=== PATIENT | male | born 1965 | race Caucasian/White ===

== ENCOUNTER 2017-08-26 14:45 | Emergency (ER) | payer SELFPAY ==
[2017-08-26] VITALS (7 sets, daily range): BP systolic 114–147; BP diastolic 69–80; PULSE 72–89; RESP 15–18; TEMP 36.4; O2SAT 97–100; BMI 50.6
--- NOTE | 2017-08-26 15:09 | EKG12_ITS ---
Test Reason : REPEAT Blood Pressure : / mmHG Vent. Rate : 070 BPM Atrial Rate : 070 BPM P-R Int : 186 ms QRS Dur : 122 ms QT Int : 416 ms P-R-T Axes : 046 -05 033 degrees QTc Int : 449 ms Normal sinus rhythm Right bundle branch block Abnormal ECG Confirmed by EUGENE CHIO, TEMO ([id number]), avid editor NICHOLAS JIMENEZ ([id number]) on 08/28/2017 2:48:27 PM Referred By: SAMREEN Confirmed By:TEMO KNIGHT MD
--- NOTE | 2017-08-26 15:10 | ED.VISSUMM ---
- ER Visit Summary Date of Service: 08/26/17 Chief Complaint: Chest pain History of Present Illness: The patient is a 52 M who states that last evening while getting ready for bed at approximately 2300 hrs. he developed a pressure squeezing sensation that lasted 30 minutes just to the right of his mid sternum radiating to his back. He was slightly short of breath. He had no nausea vomiting or diaphoresis. It resolved on its own. Today around 1300 hrs. he was at work. He had a gradual onset of the same sensation and it acutely got worse. He noted that while using the bathroom he was lightheaded. He has a history of gout and obesity. His father had a stent placed at age 77. He is a lifetime non-smoker. His only medication includes allopurinol. He has never had this before. He has had no prior stress test or heart catheterization. He states his notes that he is a very heavy snorer. No known history of sleep apnea or pulmonary hypertension. Physical Examination: 147/69 heart rate of 93 respirations are 17 pulse ox 100% on room air Gen: Well-nourished well-developed is Head: Normocephalic atraumatic Eyes: Perrl EOMI ENT: TMs clear no rhinorrhea moist mucous membranes Neck: Supple no lymphadenopathy no JVD nontender CVS: Regular rate rhythm no murmurs normal S1-S2 Respiratory: No distress clear to auscultation bilaterally when pressing on his chest he states that it makes the heaviness and squeezing sensation worse Abdomen: Soft nontender nondistended normal bowel sounds no masses Back: Nontender Extremity: Nontender no edema Skin: Normal color no rash Neuro: alert orientated ?3 CN II-XII intact normal strength sensation reflexes gait cerebellar Psych: Normal affect normal mood Test Results: EKG demonstrates a normal sinus rhythm at a rate of 99 with a right bundle branch block. I have no old EKGs to compare to. Emergency Department Course and Treatment: Mr. Esqueda received aspirin and nitroglycerin. States he is doing better other than a slight headache. He does not wish anything for that. D-dimer not elevated. Troponin less than 0.02. The troponin and repeat EKG were obtained. Troponin less than 0.02 on delta. MARIBEL score 1. Heart score 3 The patient will be discharged home. He will follow-up with his primary care for stress testing. Return if worsening. Impression: 1. Chest pain This note was generated with [employer] / [employer]ader dictation software. It may contain incorrect words, spelling, and punctuation that were not noted in review of the chart prior to signing ED Disposition - Plan for ED Patient: Disposition: Home or Assisted Living Chief Complaint: Chest Pain Instructions: ED Chest Pain Atypical Unkn Cause Referrals: [facility] Doctor,Out of [Primary Care Provider] - Additional Instructions: Please call your doctor in the morning to arrange early follow-up to discuss stress testing. Return if worsening or any concerns.
[2017-08-26] MEDS: 0.9% Normal Saline 1,000 ML 150 ML IV (15:19)
[2017-08-26] MEDS: Aspirin 81 MG TAB.CHEW 324 MG PO (15:20)
--- NOTE | 2017-08-26 15:25 | RAD_ITS ---
STUDY: X-RAY CHEST REASON FOR EXAM: Male, 52 years old. Chest pain and shortness of breath. Dyspnea. TECHNIQUE: Single AP portable view of the chest. COMPARISON: None. FINDINGS: EKG electrodes are seen. Mild elevation of the right hemidiaphragm. There is no demonstrated pleural abnormality. Normal size heart. Normal mediastinum and greg. Normal visualized pulmonary arteries. There is atherosclerotic tortuosity of the aortic arch and descending thoracic aorta. Normal visualized thoracic spine. Normal visualized ribs, clavicles, and shoulders. There is no demonstrated abnormality of the visualized soft tissue structures of the upper abdomen. RAD/Chest 1 View (Portable) IMPRESSION: No acute abnormality is seen. Electronically Signed: Skinny Kamara MD at 15:37 EDT Tel [phone], Service support ,
[2017-08-26 15:26] LABS: Absolute Lymphocyte Count 2.95 X10^3/ul (0.83-4.51); Absolute Neutrophil Count 4.4 X10^3/uL (2.0-7.7); Basophil# 0.02 X10^3/uL; Basophil% 0.2 % (0-1); Eosinophil# 0.14 X10^3/uL; Eosinophils% 1.7 % (0-5); Hemoglobin 14.2 g/dl (13.0-16.5); Lymphocyte # 2.95 X10^3/ul (4.0); Lymphocyte % 36.7 % (19-41); Mean Corp Hgb Conc 32.3 g/gl (32-36); Mean Corpuscular Hgb 31.1 pg (27.0-32.0); Mean Corpuscular Volume 96.5 fL (80-94); Mean Platelet Vol. 10.1 fl (6.2-12.0); Monocyte# 0.53 X10^3/uL; Monocyte% 6.6 % (0-10); Neutrophil # 4.38 X10^3/uL (2.7-7.7); Neutrophil % 54.6 % (47-70); Platelet Count 263 K/mm3 (150-450); RBC Distribution Width CV 13.2 % (11.6-14.6); RBC Distribution Width SD 46.3 fl (35.1-43.9); Red Blood Count 4.56 M/mm3 (4.6-6.2)
[2017-08-26 15:36] LABS: Anion Gap 6 (5-15); BUN 15 mg/dL (7-18); BUN/Creat Ratio 15.9 RATIO (10-20); Calcium,Total 8.9 mg/dL (8.5-10.1); Chloride 103 mmol/L (98-107); Creatinine, Serum 0.94 mg/dL (0.70-1.30); EST Glomerular Filtration Rate 88 mL/min (>60); Est Glom Filt Rate - Afr Amer 107 mL/min (>60); Estimated Creatinine Clearance 89.84 ml/min; Glucose 123 mg/dL (74-106); Potassium 3.5 mmol/L (3.5-5.1); Sodium Level 140 mmol/L (136-145)
[2017-08-26 15:46] LABS: D-Dimer Quantitative (DVT/PE) 0.35 FEU/ug/m (0.27-0.49); POSITIVE COUNT NO; POSITIVE DIFFERENTIAL NO; POSITIVE MORPHOLOGY NO
--- NOTE | 2017-08-26 15:58 | EKG12_ITS ---
Test Reason : CP Blood Pressure : / mmHG Vent. Rate : 091 BPM Atrial Rate : 091 BPM P-R Int : 184 ms QRS Dur : 124 ms QT Int : 380 ms P-R-T Axes : 044 -05 047 degrees QTc Int : 467 ms Normal sinus rhythm Right bundle branch block Abnormal ECG Confirmed by EUGENE CHOI, TEMO ([id number]), editorial specialist NICHOLAS JIMENEZ ([id number]) on 08/28/2017 2:48:39 PM Referred By: JAYLEN Confirmed By:TEMO KNIGHT MD
== END 2017-08-26 18:00 | disposition home or self-care (01) ==
PROVIDERS: Emergency Provider Emergency Medicine; Family Provider Family Medicine
DX: R07.9 Chest pain, unspecified (principal); E66.9 Obesity, unspecified; M10.9 Gout, unspecified; Z82.49 Family history of ischemic heart disease and other diseases of the circulatory system
CPT/HCPCS: 71045; 80048; 84484; 85025; 85379; 93005; 99285

== ENCOUNTER 2018-04-14 10:19 | Emergency (ER) | payer SELFPAY ==
[2018-04-14 10:20] VITALS: BP 158/83; PULSE 98; RESP 18; TEMP 37; O2SAT 95; BMI 47.9
--- NOTE | 2018-04-14 10:37 | RAD_ITS ---
STUDY: X-RAY - RIGHT KNEE REASON FOR EXAM: Male, 52 years old. Pain following a fall. TECHNIQUE: 3 view(s) of the knee. COMPARISON: None. FINDINGS: Normal visualized distal femur. Normal visualized proximal tibia and fibula. Normal proximal tibiofibular articulation. There is moderate degenerative arthrosis of the medial femorotibial compartment with moderate joint space narrowing. Normal lateral femorotibial compartment. Normal patellofemoral articulation. Degenerative spurring is seen along the anterior superior aspect of the patella. Prepatellar soft tissue swelling. RAD/Knee 3 Views IMPRESSION: Degenerative arthrosis. Prepatellar soft tissue swelling. Electronically Signed: Skinny Kamara MD at 11:35 EST Tel [phone], Service support ,
--- NOTE | 2018-04-14 10:37 | RAD_ITS ---
STUDY: X-RAY - RIGHT TIBIA AND FIBULA REASON FOR EXAM: Male, 52 years old. Pain following a recent fall. TECHNIQUE: 2 view(s) and 4 images of the tibia and fibula were obtained. COMPARISON: None. FINDINGS: Normal visualized tibia. Normal visualized fibula. A spur is seen at the insertion of the Achilles tendon. Soft tissue swelling. RAD/Tibia & Fibula 2 Views IMPRESSION: Soft tissue swelling. Electronically Signed: Skinny Kamara MD at 11:34 EST Tel [phone], Service support ,
--- NOTE | 2018-04-14 10:41 | ED.VISSUMM ---
- ER Visit Summary Date of Service: 04/14/18 Chief Complaint: Right leg pain History of Present Illness: The patient is a 52 M past medical history of gout. Patient states he was blowing leaves at his home on Thursday stepped on a metal basement door slipped and fell landing awkwardly on both legs. Said his right leg was twisted underneath him. Since that time he has had pain primarily in the knee but the entire leg and it increases with weightbearing. He denies any significant prior injury or surgery to his right lower extremity. Denies hitting his head or any head, neck or back injury from the fall. He denies any numbness to his right foot. Physical Examination: Middle-aged male. Vital signs are stable afebrile. H EENT exam atraumatic. Pupils round reactive light. Neck nontender. Normal range of motion. Trachea midline. Lungs clear to auscultation bilaterally. Chest wall nontender. Heart regular rate and rhythm no murmur. Abdomen soft nontender. Normal bowel sounds. Pelvic girdle intact. Both upper extremities are nontender with normal range of motion noted equal and symmetrical fitter hand strength. Left lower extremity has diffuse mild soft tissue tenderness but no bony deformity. He has normal range of motion of his left hip, knee, ankle and foot. Left foot is neurovascular intact with dorsi and plantar flexion. Normal touch sensation. Right lower extremity he has pain on palpation basically from the thigh all the way down to his ankle. Primarily in the right knee. There is mild swelling in the right knee. He has decreased range of motion of the right knee due to pain. I cannot thoroughly evaluate his knee ligaments due to pain. His right foot is neurovascular intact. Dorsi and plantar flexion intact. Achilles tendon intact. Normal DP pulse. He is able to wiggle his toes. Normal touch sensation. The right foot is nontender. Back nontender. Neurologically is awake and alert with no focal motor deficits. Test Results: Right femur x-ray no acute abnormality. Right knee x-ray shows arthritic changes and a knee effusion. No fracture. Right tib-fib x-ray no acute abnormality. All films were read both by myself and the radiologist. Emergency Department Course and Treatment: I went over the x-rays with the patient and family. He will be diagnosed with a knee sprain. Ice and elevate. Anti-inflammatories for pain. [place] for pain. If not improving follow-up either with his primary care physician at [facility] or c python developer today for orthopedics for further evaluation to rule out an internal derangement of his knee. Treatment Plan: Ice and elevate. Motrin for pain and inflammation. [place] for pain. Follow-up if not improving for further evaluation. Disposition: Discharge Impression: Acute fall Acute right knee sprain. Rule out internal derangement This note was generated with [employer] dictation software. It may contain incorrect words, spelling, and punctuation that were not noted in review of the chart prior to signing ED Disposition - Plan for ED Patient: Chief Complaint: Lower Extremity Injury Referrals: [facility] Doctor,Out of [Primary Care Provider] -
--- NOTE | 2018-04-14 10:46 | ED.DCSUM_ITS ---
- ER Visit Summary Date of Service: 04/14/18 Chief Complaint: Right leg pain History of Present Illness: The patient is a 52 M past medical history of gout. Patient states he was blowing leaves at his home on Thursday stepped on a metal basement door slipped and fell landing awkwardly on both legs. Said his right leg was twisted underneath him. Since that time he has had pain primarily in the knee but the entire leg and it increases with weightbearing. He denies any significant prior injury or surgery to his right lower extremity. Denies hitting his head or any head, neck or back injury from the fall. He denies any numbness to his right foot. Physical Examination: Middle-aged male. Vital signs are stable afebrile. H EENT exam atraumatic. Pupils round reactive light. Neck nontender. Normal range of motion. Trachea midline. Lungs clear to auscultation bilaterally. Chest wall nontender. Heart regular rate and rhythm no murmur. Abdomen soft nontender. Normal bowel sounds. Pelvic girdle intact. Both upper extremities are nontender with normal range of motion noted equal and symmetrical general office associate strength. Left lower extremity has diffuse mild soft tissue tenderness but no bony deformity. He has normal range of motion of his left hip, knee, ankle and foot. Left foot is neurovascular intact with dorsi and plantar flexion. Normal touch sensation. Right lower extremity he has pain on palpation basically from the thigh all the way down to his ankle. Primarily in the right knee. There is mild swelling in the right knee. He has decreased range of motion of the right knee due to pain. I cannot thoroughly evaluate his knee ligaments due to pain. His right foot is neurovascular intact. Dorsi and plantar flexion intact. Achilles tendon intact. Normal DP pulse. He is able to wiggle his toes. Normal touch sensation. The right foot is nontender. Back nontender. Neurologically is awake and alert with no focal motor deficits. Test Results: Right femur x-ray no acute abnormality. Right knee x-ray shows arthritic changes and a knee effusion. No fracture. Right tib-fib x-ray no acute abnormality. All films were read both by myself and the radiologist. Emergency Department Course and Treatment: I went over the x-rays with the patient and family. He will be diagnosed with a knee sprain. Ice and elevate. Anti-inflammatories for pain. [place] for pain. If not improving follow-up either with his primary care physician at [facility] or bilingual medical receptionist today for orthopedics for further evaluation to rule out an internal derangement of his knee. Treatment Plan: Ice and elevate. Motrin for pain and inflammation. [place] for pain. Follow-up if not improving for further evaluation. Disposition: Discharge Impression: Acute fall Acute right knee sprain. Rule out internal derangement This note was generated with [employer] dictation software. It may contain incorrect words, spelling, and punctuation that were not noted in review of the chart prior to signing ED Disposition - Plan for ED Patient: Chief Complaint: Lower Extremity Injury Referrals: [facility] Doctor,Out of [Primary Care Provider] -
--- NOTE | 2018-04-14 11:05 | RAD_ITS ---
STUDY: X-RAY - RIGHT FEMUR REASON FOR STUDY: Male, 52 years old. Pain following a recent fall. TECHNIQUE: Radiological exam, femur, minimum 2 views COMPARISON: None. FINDINGS: Normal visualized femur. Normal visualized soft tissue structure. RAD/Femur Min 2 Views IMPRESSION: Normal x-ray examination of the femur. Electronically Signed: Skinny Kamara MD at 11:35 EST Tel [phone], Service support ,
--- NOTE | 2018-04-14 12:06 | DCINST.ED_ITS ---
ED Disposition - Plan for ED Patient: Disposition: Home or Assisted Living Chief Complaint: Lower Extremity Injury Instructions: ED Sprain Knee Prescriptions: Hydrocodone/Acetaminophen [[place] 10-325 Tablet] 1 ea PO Q6H PRN PRN #20 tab PRN Reason: Pain Referrals: Esther Calhoun DO [STAFF PHYSICIAN] - 10-14 Days if not better Additional Instructions: Ice and elevate right knee. To decrease pain and swelling. Motrin for pain and inflammation. [place] for more severe pain. If not improving follow-up with an orthopedic surgeon for further evaluation.
[2018-04-14 12:22] VITALS: BP 138/74; PULSE 72; RESP 15; O2SAT 97
== END 2018-04-14 12:23 | disposition home or self-care (01) ==
PROVIDERS: Emergency Provider Emergency Medicine; Family Provider Family Medicine
DX: S83.91XA Sprain of unspecified site of right knee, initial encounter (principal); W18.09XA Striking against other object with subsequent fall, initial encounter; Y93.H9 Activity, other involving exterior property and land maintenance, building and construction; Y92.007 Garden or yard of unspecified non-institutional (private) residence as the place of occurrence of the external cause; M10.9 Gout, unspecified
CPT/HCPCS: 73552; 73562; 73590; 99282

== ENCOUNTER 2018-04-26 19:48 | Inpatient (IN) | payer SELFPAY ==
[2018-04-26 19:50] VITALS: BP 157/93; PULSE 92; RESP 20; TEMP 36.7; O2SAT 98; BMI 49.4
--- NOTE | 2018-04-26 20:20 | US_ITS ---
STUDY: VENOUS DOPPLER ULTRASOUND - LEFT LOWER EXTREMITY REASON FOR EXAM: Male, 52 years old. TECHNIQUE: Ultrasound evaluation of the deep vein system to include martell-scale imaging and compression was performed. Martell-scale imaging and Doppler sonographic evaluation, including duplex spectral analysis and qualitative color flow sonography, was performed. COMPARISON: None. FINDINGS: Common Femoral Vein: Normal compression, spontaneity and augmentation. Normal color Doppler. Femoral Proximal: Normal compression, spontaneity and augmentation. Normal color Doppler. Femoral Middle: Normal compression, spontaneity and augmentation. Normal color Doppler. Femoral Distal: Normal compression, spontaneity and augmentation. Normal color Doppler. Popliteal Vein: Normal compression, spontaneity and augmentation. Normal color Doppler. Posterior Tibial Vein: Normal compression, spontaneity and augmentation. Normal color Doppler. There is a 3.5 x 4.5 x 2.3 cm cystic lesion in the popliteal fossa. Low-grade internal echoes may represent hemorrhage, less likely infection. US/Venous Duplex Imag/Limited/Uni IMPRESSION: 1. No evidence of DVT. 2. Complex popliteal cyst. Electronically Signed: Maria Victoria Ramirez MD at 21:18 EST Tel , Service support ,
--- NOTE | 2018-04-26 20:25 | RAD_ITS ---
STUDY: X-RAY - LEFT KNEE REASON FOR EXAM: Male, 52 years old. Fall, knee pain. TECHNIQUE: 4 view(s) of the knee. COMPARISON: None. FINDINGS: There is a small knee joint effusion. There is no fracture or dislocation. Mild patellofemoral spurring is noted. Medial and lateral compartments are unremarkable. Soft tissues and bony structures are otherwise unremarkable. RAD/Knee 4 or More Views IMPRESSION: 1. Small joint effusion. 2. Mild degenerative changes. Otherwise unremarkable study. Electronically Signed: Maria Victoria Ramirez MD at 20:50 EST Tel , Service support ,
[2018-04-26 20:45] LABS: ALB/GLOB Ratio 0.6 RATIO (0.9-2.4); AST(SGOT) 17 U/L (15-37); Alanine Aminotransfer ALT/SGPT 29 U/L (16-61); Albumin, Serum 3.2 g/dL (3.2-5.0); Alkaline Phosphatase 89 U/L (45-117); Anion Gap 8 (5-15); BUN 17 mg/dL (7-18); BUN/Creat Ratio 20.1 RATIO (10-20); Chloride 99 mmol/L (98-107); Creatinine, Serum 0.84 mg/dL (0.70-1.30); EST Glomerular Filtration Rate 100 mL/min (>60); Est Glom Filt Rate - Afr Amer 121 mL/min (>60); Estimated Creatinine Clearance 100.53 ml/min; Globulin 5.3 g/dL (2.2-4.2); Glucose 96 mg/dL (74-106); Potassium 3.6 mmol/L (3.5-5.1); Protein, Total 8.5 g/dL (6.4-8.2); Sodium Level 137 mmol/L (136-145); Uric Acid 4.4 mg/dL (3.5-7.2)
[2018-04-26 20:49] LABS: Absolute Lymphocyte Count 2.64 X10^3/ul (0.83-4.51); Absolute Neutrophil Count 7.2 X10^3/uL (2.0-7.7); Basophil# 0.03 X10^3/uL; Basophil% 0.3 % (0-1); Eosinophil# 0.16 X10^3/uL; Eosinophils% 1.4 % (0-5); Hematocrit 39.4 % (40-54); Hemoglobin 12.8 g/dl (13.0-16.5); Lymphocyte # 2.64 X10^3/ul (4.0); Lymphocyte % 23.9 % (19-41); Mean Corp Hgb Conc 32.5 g/gl (32-36); Mean Corpuscular Hgb 31.3 pg (27.0-32.0); Mean Corpuscular Volume 96.3 fL (80-94); Mean Platelet Vol. 9.1 fl (6.2-12.0); Monocyte# 0.94 X10^3/uL; Monocyte% 8.5 % (0-10); Neutrophil # 7.22 X10^3/uL (2.7-7.7); Neutrophil % 65.4 % (47-70); Platelet Count 382 K/mm3 (150-450); RBC Distribution Width CV 13.3 % (11.6-14.6); Red Blood Count 4.09 M/mm3 (4.6-6.2)
[2018-04-26 21:21] LABS: POSITIVE COUNT NO; POSITIVE DIFFERENTIAL NO; POSITIVE MORPHOLOGY NO
[2018-04-26 21:52] VITALS: BP 136/88; PULSE 78; RESP 16; O2SAT 98
[2018-04-26 22:10] VITALS: PULSE 89; RESP 18; TEMP 37.6; O2SAT 98
[2018-04-26 22:38] VITALS: BP 159/76; PULSE 87; RESP 18; O2SAT 97
--- NOTE | 2018-04-26 22:41 | ED.DCSUM_ITS ---
- ER Visit Summary Date of Service: 04/26/18 Chief Complaint: Leg swelling and foot redness History of Present Illness: The patient is a 52 M who was seen in the emergency department on May 14 2 days following a fall. On the fall he states he had pain in the right knee and had that x-rayed. That was negative. He states that is been very difficult for him to move around due to pain. His left knee has gradually gotten worse. He states he feels a fullness and a pain in his popliteal fossa region extending down onto the calf. He notes left greater than right leg swelling. He notes redness over the dorsum of both feet but is worse on the left. He states he has had subjective fever and shaking today. He has not been very mobile pretty much laying around since the injury. He does have a history of gout and his states that he had not been receiving his colchicine or allopurinol since he has been taking pain medication. Physical Examination: Afebrile vital signs are stable Gen: Well-nourished well-developed morbid obesity Head: Normocephalic atraumatic Eyes: Perrl EOMI ENT: TMs clear no rhinorrhea moist mucous membranes Neck: Supple no lymphadenopathy no JVD nontender CVS: Regular rate rhythm no murmurs normal S1-S2 Respiratory: No distress clear to auscultation bilaterally chest nontender Abdomen: Soft nontender nondistended normal bowel sounds no masses Back: Nontender Extremity: The left leg 2 finger breaths below the tibial tuberosity measures 50 cm. The right measures 40 cm. There is pitting edema up to the level of the knee. The left foot demonstrates increased warmth and erythema that does not resolve with elevation. The dorsum of the right foot is minimally red with mild erythema. Skin: Normal color see extremity exam Neuro: alert orientated ?3 CN II-XII intact normal strength sensation reflexes gait cerebellar Psych: Normal affect normal mood Test Results: White count is normal. X-ray of the knees showed mild degenerative changes. Ultrasound of the left leg demonstrates a complex cyst possible hemorrhagic Martinez's cyst. Emergency Department Course and Treatment: While reviewing the patient's labs and imaging the patient was noted to be shaking like rigors. His temperature is 99.6. The erythema on the dorsum of the left foot has increased. Blood cultures were obtained and lactic acid were ordered. Impression: 1. Bilateral foot cellulitis. 2. Left complex popliteal cyst This note was generated with 27 b[employer] dictation software. It may contain incorrect words, spelling, and punctuation that were not noted in review of the chart prior to signing ED Disposition - Plan for ED Patient: Chief Complaint: Lower Extremity Injury Referrals: [facility] Doctor,Out of [Primary Care Provider] -
[2018-04-26 22:48] VITALS: TEMP 37.7
[2018-04-26] MEDS: Furosemide 100 MG/10 ML Vial 80 MG IV (23:07)
[2018-04-26] MEDS: Morphine 4 MG/ML Syringe IV (23:07)
[2018-04-26] MEDS: Ondansetron 4 MG/2 ML Vial IV (23:07)
[2018-04-26 23:17] VITALS: BP 155/94; PULSE 82; RESP 18; TEMP 37.6; O2SAT 99
--- NOTE | 2018-04-26 23:24 | PCM.HP.STD ---
Problem List (1) Cellulitis of left foot Status: Acute (2) Gout Status: Chronic (3) Edema Status: Acute History of Present Illness Date of Admission: 04/26/18 Chief Complaint: left foot swelling and erythema, fever and chills The patient is a 52 year old male patient with a significant history of falling on April 12. He was seen and treated in the ER on 04/14 and x-ray of right leg was negative. Since then he has developed pain and swelling in his left leg. He is now struggling to ambulate. The pain has increased today. He is negative for DVT. WBC count is elevated at 11,000 and the patient is experiencing rigors. Since he has been in the ER the dorsum of his left foot has become more red and warm to touch. He will be admitted for management of cellulitis. Past Medical History Past Medical History (Chronic Problems): Chronic Problems Gout (Chronic) Allergies diphenhydramine [From Benadryl] Allergy (Verified 04/26/18 19:52) Other Penicillins [PCN] Allergy (Verified 04/26/18 19:52) Unknown Home Medications: Ambulatory Orders Medication Instructions Recorded Allopurinol [Zyloprim] 300 mg PO DAILYCM 08/26/17 Colchicine 0.6 mg PO DAILY 04/14/18 Hydrocodone/Acetaminophen [[place] 1 ea PO Q6H PRN PRN #20 tab 04/14/18 10-325 Tablet] Smoking Status: Never smoker - *Family History Maternal History Items: No pertinent history Review of Systems Constitutional: Reports: Chills, Fever. Denies: Weight Change HEENT: Denies: Head Aches, Sinus Congestion, Sinus Drainage Cardiovascular: Denies: Chest Pain, Palpitations Respiratory: Denies: Cough, Shortness of breath at rest, Sputum production Gastrointestinal: Denies: Abdominal Pain, Nausea, Vomiting Genitourinary: Denies: Dysuria Musculoskeletal: Reports: Foot Pain, Joint swelling, Leg Pain. Denies: Joint Pain, Joint Tenderness Skin: Denies: Rash, Wounds Neurological: Denies: Numbness, Tingling, Focal weakness Psychiatric: Denies: Anxiety, Depression, Homicidal Ideations, Suicidal Ideations Hematologic/ Lymphatic: Denies: Easy Bruising, Easy Bleeding VTE Information - Inpt Only VTE Present on Admission: No VTE Mechan Device Prophylaxis: None VTE Pharm Prophylaxis ordered?: Yes Patient Problems: Active and Suspected Problems Cellulitis of left foot (Acute) Edema (Acute) - Physical Exam General: Alert, Oriented x3, Cooperative HEENT: Atraumatic, Normocephalic Neck: Supple Lungs: Clear to auscultation, Normal air movement Cardiovascular: Regular rate, Normal S1, Normal S2, No murmurs Abdomen: Bowel Sounds Present, Soft, Non Tender, Obese Extremities: Capillary Refill Less than 3 Seconds, Edema - 3+bilat lower ext edema Skin: Ulcer/ Wound - erythea , warmth and tenderness on dorsum of entire left foot Musculoskeletal: No Tenderness to Palpation of Joints or Extremities Neurological: Neuro grossly intact Psych/Mental Status: Normal Affect, Appropriate Vital Signs Temp Pulse Resp BP Pulse Ox 99.6 F H 82 18 155/94 H 99 04/26/18 23:17 04/26/18 23:17 04/26/18 23:17 04/26/18 23:17 04/26/18 23:17 Oxygen Delivery Method Room Air Weight: 335 lb Body Mass Index (BMI) 49.4 Laboratory Tests Past 24 Hrs 04/26/18 04/26/18 04/26/18 20:20 20:20 22:25 WBC 11.0 RBC 4.09 L Hgb 12.8 L Hct 39.4 L MCV 96.3 H MCH 31.3 MCHC 32.5 RDW 13.3 RDW Differential 47.0 H Plt Count 382 MPV 9.1 Immature Gran % (Auto) 0.500 Neut % (Auto) 65.4 Lymph % (Auto) 23.9 Titus % (Auto) 8.5 Eos % (Auto) 1.4 Baso % (Auto) 0.3 Absolute Neuts (auto) 7.2 Absolute Lymphs (auto) 2.64 Total Counted Not Reportable Sodium 137 Potassium 3.6 Chloride 99 Carbon Dioxide 30.0 Anion Gap 8 BUN 17 Creatinine 0.84 Estim Creat Clear Calc 100.53 Est GFR (MDRD) Af Amer 121 Est GFR (MDRD) Non-Af 100 BUN/Creatinine Ratio 20.1 H Glucose 96 Lactic Acid 1.0 Uric Acid 4.4 Calcium 9.0 Total Bilirubin 0.30 AST 17 ALT 29 Alkaline Phosphatase 89 Total Protein 8.5 H Albumin 3.2 Globulin 5.3 H Albumin/Globulin Ratio 0.6 L Assessment/Plan All Active Problems Cellulitis of left foot (Acute) Edema (Acute) Plan - admit to general medical floor - continue Vancomycin initiate in the ER - CBC, BMP in am - morphine 4mg IV q2hrs prn pain - regular diet - continue routine home medications for stable medical conditions - LMWH for DVT prophylaxis Code Visit Inpatient E&M: 56615 Init Hosp L3
[2018-04-27 00:04] VITALS: BMI 49.5
[2018-04-27 00:22] VITALS: BP 148/75; PULSE 91; RESP 20; TEMP 37; O2SAT 99
--- NOTE | 2018-04-27 00:22 | PCM.RX.CS ---
Consult Pharmacy has been consulted to manage selected antiobiotic: Vancomycin Type of Consult: New start Suspected Infection: Skin/Soft tissue Prior Doses of Antibiotics Received/Current Regimen: Medications Vancomycin HCl 1,750 mg/ (Sodium Chloride) 535 mls @ 250 mls/hr IV Q12H LANCE Discontinued Medications Vancomycin HCl 1,500 mg/ (Sodium Chloride) 530 mls @ 250 mls/hr IV X1 ONE Stop: 04/27/18 00:21 Last Admin: 04/26/18 22:34 Dose: 250 mls/hr Labs: Sodium 137 mmol/L (136-145) 04/26/18 20:20 Potassium 3.6 mmol/L (3.5-5.1) 04/26/18 20:20 Chloride 99 mmol/L (98-107) 04/26/18 20:20 Carbon Dioxide 30.0 mmol/L (21.0-32.0) 04/26/18 20:20 Anion Gap 8 (5-15) 04/26/18 20:20 BUN 17 mg/dL (7-18) 04/26/18 20:20 Creatinine 0.84 mg/dL (0.70-1.30) 04/26/18 20:20 Est GFR (MDRD) Af Amer 121 mL/min (>60) 04/26/18 20:20 Est GFR (MDRD) Non-Af 100 mL/min (>60) 04/26/18 20:20 BUN/Creatinine Ratio 20.1 RATIO (10-20) H 04/26/18 20:20 Glucose 96 mg/dL (74-106) 04/26/18 20:20 Weight used for dosin.2 kg Estimated Creatinine Clearance: 100 Goal Trough: 10-15 mcg/mL Pharmacy Plan for Drug Dosing: Pharmacy Service will continue to monitor and adjust dosing as required. Follow-Up Labs: Trough Vancomycin Labs to be done on [date and time ordered]: 04/28/18 @1000
[2018-04-27 00:25] VITALS: BMI 49.6
[2018-04-27] MEDS: Morphine 4 MG/ML Syringe IV (02:12)
[2018-04-27] MEDS: 0.9% NaCl Peripheral Flush Adult/Peds IV ×9 (02:12→23:08)
[2018-04-27] MEDS: HYDROmorphone 1 MG/ML Syringe IV ×3 (04:49→12:21)
[2018-04-27 04:53] VITALS: BP 142/69; PULSE 94; RESP 16; TEMP 37.4; O2SAT 95
[2018-04-27 06:53] LABS: Hematocrit 37.1 % (40-54); Hemoglobin 11.9 g/dl (13.0-16.5); Mean Corp Hgb Conc 32.1 g/gl (32-36); Mean Corpuscular Hgb 31.1 pg (27.0-32.0); Mean Corpuscular Volume 96.9 fL (80-94); Mean Platelet Vol. 9.8 fl (6.2-12.0); Platelet Count 389 K/mm3 (150-450); RBC Distribution Width CV 13.1 % (11.6-14.6); RBC Distribution Width SD 45.5 fl (35.1-43.9); Red Blood Count 3.83 M/mm3 (4.6-6.2)
[2018-04-27 07:00] LABS: Scan Indicated on CBC? Y/N NO
[2018-04-27 07:08] LABS: Anion Gap 6 (5-15); BUN 14 mg/dL (7-18); BUN/Creat Ratio 18.5 RATIO (10-20); Calcium,Total 8.7 mg/dL (8.5-10.1); Chloride 99 mmol/L (98-107); Creatinine, Serum 0.76 mg/dL (0.70-1.30); EST Glomerular Filtration Rate 114 mL/min (>60); Est Glom Filt Rate - Afr Amer 138 mL/min (>60); Estimated Creatinine Clearance 111.11 ml/min; Glucose 108 mg/dL (74-106); Potassium 3.3 mmol/L (3.5-5.1); Sodium Level 134 mmol/L (136-145)
--- NOTE | 2018-04-27 07:33 | PCM.PN.HOSP ---
Patient Problems: Active and Suspected Problems Cellulitis of left foot (Acute) Edema (Acute) Subjective: Patient is a 52-year-old gentleman first seen in the ER on April 14 following a fall present back with pain in both knees. He was also found to have erythema involving the dorsal surface of both feet consistent with cellulitis. And underwent subsequent evaluation with imaging studies no fractures were found he was however found to have a complex popliteal cyst. Admitted to regular nursing floor for further management Objective: GENERAL: cooperative HEENT: Atraumatic; moist oral mucosa EYES; Anicteric, Normal Conjunctiva NECK; supple, normal thyroid, no distended JVD. RESPIRATORY: Diminished to auscultation bilaterally, CARDIOVASCULAR: Regular S1 S2, no audible murmurs GI: soft, non-tender, normoactive bowel sounds, : No Renal angle tenderness; EXTREMITIES: 2+ bilateral edema, no clubbing, no cyanosis. MUSCULOSKELETAL: Movement restricted in the left knee NEURO: Awake; no lateralizing signs. SKIN: Area of erythema on the dorsal surface of both feet PSYCH; Normal affect Vitals/I&O's: Vital Signs Temp Pulse Resp BP Pulse Ox 99.4 F H 94 16 142/69 H 95 04/27/18 04:53 04/27/18 04:53 04/27/18 04:53 04/27/18 04:53 04/27/18 04:53 Oxygen Delivery Method Room Air Weight: 152.2 kg Body Mass Index (BMI) 49.5 Intake and Output for Last 24 Hours 04/25/18 04/26/18 04/27/18 23:59 23:59 23:59 Intake Total 1624 / 1624 Output Total 1974 Balance -351 / -351 Laboratory Results 04/26/18 20:20: WBC 11.0, RBC 4.09 L, Hgb 12.8 L, Hct 39.4 L, MCV 96.3 H, MCH 31.3, MCHC 32.5, RDW 13.3, RDW Differential 47.0 H, Plt Count 382, MPV 9.1, Immature Gran % (Auto) 0.500, Neut % (Auto) 65.4, Lymph % (Auto) 23.9, [place] % (Auto) 8.5, Eos % (Auto) 1.4, Baso % (Auto) 0.3, Absolute Neuts (auto) 7.2, Absolute Lymphs (auto) 2.64, Total Counted Not Reportable 04/26/18 20:20: Sodium 137, Potassium 3.6, Chloride 99, Carbon Dioxide 30.0, Anion Gap 8, BUN 17, Creatinine 0.84, Estim Creat Clear Calc 100.53, Est GFR (MDRD) Af Amer 121, Est GFR (MDRD) Non-Af 100, BUN/Creatinine Ratio 20.1 H, Glucose 96, Uric Acid 4.4, Calcium 9.0, Total Bilirubin 0.30, AST 17, ALT 29, Alkaline Phosphatase 89, Total Protein 8.5 H, Albumin 3.2, Globulin 5.3 H, Albumin/Globulin Ratio 0.6 L 04/26/18 22:25: Lactic Acid 1.0 04/27/18 05:40: Sodium 134 L, Potassium 3.3 L, Chloride 99, Carbon Dioxide 29.0, Anion Gap 6, BUN 14, Creatinine 0.76, Estim Creat Clear Calc 111.11, Est GFR (MDRD) Af Amer 138, Est GFR (MDRD) Non-Af 114, BUN/Creatinine Ratio 18.5, Glucose 108 H, Calcium 8.7 04/27/18 05:40: WBC 11.0, RBC 3.83 L, Hgb 11.9 L, Hct 37.1 L, MCV 96.9 H, MCH 31.1, MCHC 32.1, RDW 13.1, RDW Differential 45.5 H, Plt Count 389, MPV 9.8 Current Medications Allopurinol (Zyloprim) 300 mg PO DAILYCM [facility] Colchicine (Colchicine) 0.6 mg PO DAILY [facility] Cyclobenzaprine HCl (Flexeril) 10 mg PO TID PRN PRN PRN Reason: leg cramps/spasms Last Admin: 04/27/18 03:21 Dose: 10 mg Enoxaparin Sodium (Lovenox) 40 mg SC DAILY@1000 [facility] Hydromorphone HCl (Dilaudid Inj) 1 mg IV Q2H PRN PRN PRN Reason: SEVERE PAIN (6-03/17) Last Admin: 04/27/18 04:49 Dose: 1 mg Vancomycin IV Pharmacy to Dose (1 ea/ Sodium Chloride) 500 mls @ 250 mls/hr IV X1 PRN; Protocol PRN Reason: Rx to Dose Sodium Chloride () 250 mls @ 15 mls/hr IV .[id number] PRN PRN Reason: SALINE FLUSH Vancomycin HCl 1,750 mg/ (Sodium Chloride) 535 mls @ 250 mls/hr IV Q12H [facility] Magnesium Hydroxide (Milk Of Magnesia) 30 ml PO DAILY PRN PRN PRN Reason: Constipation Morphine Sulfate () 4 mg IV Q2H PRN PRN PRN Reason: SEVERE PAIN (6-10/10) Last Admin: 04/27/18 02:12 Dose: 4 mg Sodium Chloride () 5 - 30 ml IV UD PRN PRN Reason: SALINE FLUSH Last Admin: 04/27/18 04:49 Dose: 10 ml Medical Necessity - Tobacco Use Smoking Status: Never smoker Assessment/Plan All Active Problems Cellulitis of left foot (Acute) Edema (Acute) Patient is a 52-year-old gentleman first seen in the ER on April 14 following a fall present back with pain in both knees. He was also found to have erythema involving the dorsal surface of both feet consistent with cellulitis. And underwent subsequent evaluation with imaging studies no fractures were found he was however found to have a complex popliteal cyst. Admitted to regular nursing floor for further management 1. Bilateral lower extremity cellulitis: Admitted to regular nursing floor started on vancomycin and cefazolin patient area of infection delineated 2. Gout patient is on allopurinol as well as colchicine 3. Complex popliteal cyst (questionable ruptured Martinez's cyst) plan is to treat symptomatically 4. Morbid obesity with BMI of 49.6 lifestyle modification including weight loss advised 5. Hypokalemia corrected per protocol 6. DVT prophylaxis SC Lovenox Active Medications Allopurinol (Zyloprim) 300 mg PO DAILYCM [facility] Colchicine (Colchicine) 0.6 mg PO DAILY [facility] Cyclobenzaprine HCl (Flexeril) 10 mg PO TID PRN PRN PRN Reason: leg cramps/spasms Last Admin: 04/27/18 03:21 Dose: 10 mg Enoxaparin Sodium (Lovenox) 40 mg SC DAILY@1000 [facility] Hydromorphone HCl (Dilaudid Inj) 1 mg IV Q2H PRN PRN PRN Reason: SEVERE PAIN (6-10/10) Last Admin: 04/27/18 04:49 Dose: 1 mg Vancomycin IV Pharmacy to Dose (1 ea/ Sodium Chloride) 500 mls @ 250 mls/hr IV X1 PRN; Protocol PRN Reason: Rx to Dose Sodium Chloride () 250 mls @ 15 mls/hr IV .[id number] PRN PRN Reason: SALINE FLUSH Vancomycin HCl 1,750 mg/ (Sodium Chloride) 535 mls @ 250 mls/hr IV Q12H [facility] Magnesium Hydroxide (Milk Of Magnesia) 30 ml PO DAILY PRN PRN PRN Reason: Constipation Morphine Sulfate () 4 mg IV Q2H PRN PRN PRN Reason: SEVERE PAIN (6-10/10) Last Admin: 04/27/18 02:12 Dose: 4 mg Sodium Chloride () 5 - 30 ml IV UD PRN PRN Reason: SALINE FLUSH Last Admin: 04/27/18 04:49 Dose: 10 ml Clinical Impression(s) from Imaging Studies Venous Duplex 04/26/18 20:20 IMPRESSION: 1. No evidence of DVT. 2. Complex popliteal cyst. Electronically Signed: Maria Victoria Ramirez MD at 21:18 EST Tel , Service support , Knee X-Ray 04/26/18 20:25 IMPRESSION: 1. Small joint effusion. 2. Mild degenerative changes. Otherwise unremarkable study. Electronically Signed: Maria Victoria Ramirez MD at 20:50 EST Tel , Service support , Code Visit Inpatient E&M: 98331 Subs Hosp L3
--- NOTE | 2018-04-27 08:26 | ECHOCS_ITS ---
Reason For Study: CHF Procedure This was a 2D Doppler, Color Flow transthoracic echocardiogram. The study was technically limited. The study was technically difficult. Due to body habitus and inability to lie in left lateral decubitis position due to knee injuries from fall. Contrast injection was performed. Exam performed portable in patient room. Left Ventricle Normal LV size. Left ventricular systolic function is normal. The estimated ejection fraction is 65 %. Stage 1 diastolic dysfunction. No regional wall motion abnormalities noted. Right Ventricle Normal RV size. Normal systolic function. Atria Normal left atrium. Normal right atrium. Mitral Valve Mitral valve not well visualized. Tricuspid Valve The tricuspid valve is not well visualized. Aortic Valve The aortic valve is not well visualized. Great Vessels Normal aortic root. The pulmonary artery is normal size. Inferior vena cava collapse with sniff. Pericardium/Pleural No pericardial effusion. Medication Diluted definity 5.0ml given slow IV push to enhance endocardial definition. MMode/2D Measurements & Calculations LVIDd: 5.0 cm IVSd: 1.2 cm Ao root diam: 3.6 cm LVIDs: 3.2 cm LVPWd: 1.2 cm FS: 35.7 % LAV(MOD-bp): 58.1 ml LA A4 area: 19.1 cm2 LA dimension(2D): 3.5 cm LAV(MOD-bp) Indexed: 22.6 ml/m2 LAV(MOD-sp2): 61.7 ml LAV(MOD-sp4): 53.1 ml Time Measurements MV dec time: 0.24 sec Doppler Measurements & Calculations MV E max ivan: 79.5 cm/sec Lat Peak E' Ivan: 17.6 cm/sec Med Peak E' Ivan: 9.7 cm/sec MV A max ivan: 90.4 cm/sec E/E' lat: 4.5 E/E' med: 8.2 MV E/A: 0.88 Ao V2 max: 185.9 cm/sec LV V1 max: 105.7 cm/sec Ao max P.8 mmHg LV V1 max P.5 mmHg Ao V2 mean: 133.6 cm/sec LV V1 mean P.9 mmHg Ao mean P.8 mmHg LV V1 mean: 82.8 cm/sec Ao V2 VTI: 29.6 cm LV V1 VTI: 17.6 cm Interpretation Summary Normal LV size. Left ventricular systolic function is normal. The estimated ejection fraction is 65 %. Stage 1 diastolic dysfunction. Contrast injection was performed. Ordering Physician: Margarito Conklin Referring Physician: Solange Soni Performed By: Margoth Valdez RDCS, RVT
[2018-04-27 08:54] LABS: Magnesium 2.2 mg/dL (1.6-2.6)
[2018-04-27 09:06] VITALS: BP 149/94; PULSE 89; RESP 16; TEMP 36.8; O2SAT 94
[2018-04-27] MEDS: Furosemide 100 MG/10 ML Vial 60 MG IV (09:08)
[2018-04-27] MEDS: Allopurinol 300 MG Tablet PO (09:09)
[2018-04-27] MEDS: Enoxaparin 40 MG/0.4 ML Syringe SC (09:15)
[2018-04-27 09:20] LABS: BNP,B-Type NATRIURETIC PEPTIDE 14.8 pg/mL (0-100)
[2018-04-27] MEDS: Cefazolin 2 GM in 0.9% Normal Saline 100 ML IV ×2 (12:25→21:27)
[2018-04-27] MEDS: Ketorolac 15 MG/ML Vial IV ×3 (12:25→23:08)
[2018-04-27] MEDS: Furosemide 40 MG/4 ML Vial IV ×2 (14:57→21:26)
--- NOTE | 2018-04-27 15:22 | CASEMGMT ---
Social Work Assessment Referral Date: 04/27/2018 Date of Assessment: 04/27/2018 Reason for consult: Self-pay status Informant: SW Personal Status: SW met with pt to complete initial assessment. Pt is alert and orientated x4. Pt states that he lives with his family in a two story home. Pt states that there are two steps to enter the home. Pt states that his bought him a wheelchair and he has ATV ramps that he uses to get up and down the steps. Pt states that he was previously independent with ADLs and that he still drives. Pt states that he currently doesn't have insurance but is a apart of [facility] [employer]. Pt states that he will submit the bill to [facility] [employer] and they reimburse him. 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 DME also include crutches. Pt states that he wishes to discharge home when medically cleared. Substance Abuse Hx: Pt denied Mental Health Hx: Pt denied Plan: Pt wishes to discharge home. DELON and RAFFI MORGAN will continue to follow along to assist with discharge planning. Bekah Baez VOLUNTEER SERVICES SUPERVISOR, VIDEO GAME TESTER
[2018-04-27 15:24] VITALS: BP 149/86; PULSE 80; RESP 16; TEMP 36.7; O2SAT 97
--- NOTE | 2018-04-27 16:17 | CHAPLAIN ---
Type of Pastoral Visit _x__ Initial Visit ___ Follow-up Visit ___ On-call Visit ___ General Patient Visit ___ Spiritual Assessment ___ Family Conference ___ Bereavement ___ Rapid Response ___ Code Blue ___ Other (describe below) Pastoral Care Referral From _x__ Patient ___ Family ___ Nurse ___ Physician ___ Supervisor [employer] ___ Manager Distribution ___ Other (describe below) Sacrament/Intervention _x__ Active listening ___ Anointing ___ Holiness ___ Bereavement ___ Communion _x__ Nancy exploration ___ ___ Life review _x__ Prayer ___ Reconciliation ___ Sacrament of Sick _x__ Supportive presence ___ Wedding ___ Other (describe below) Pastoral Comments patient has feelings of disappointment and anxiety about missing work; pt says that he relies on his for his support and that they trust God to get them through it; otherwise pt has no other conceived plans of coping according to him; pt was welcoming of prayer
[2018-04-27 21:11] VITALS: BP 139/80; PULSE 87; RESP 16; TEMP 36.6; O2SAT 96
[2018-04-28 03:00] VITALS: BP 128/77; PULSE 79; RESP 14; TEMP 36.4; O2SAT 94
[2018-04-28] MEDS: Cefazolin 2 GM in 0.9% Normal Saline 100 ML IV (05:38)
[2018-04-28] MEDS: Ketorolac 15 MG/ML Vial IV (05:38)
[2018-04-28] MEDS: Furosemide 40 MG/4 ML Vial IV (05:38)
[2018-04-28 06:16] LABS: Hematocrit 38.5 % (40-54); Hemoglobin 12.2 g/dl (13.0-16.5); Mean Corp Hgb Conc 31.7 g/gl (32-36); Mean Corpuscular Hgb 30.4 pg (27.0-32.0); Mean Platelet Vol. 9.1 fl (6.2-12.0); Platelet Count 377 K/mm3 (150-450); RBC Distribution Width CV 13.1 % (11.6-14.6); RBC Distribution Width SD 45.5 fl (35.1-43.9); Red Blood Count 4.01 M/mm3 (4.6-6.2); White Blood Count 9.1 K/mm3 (4.4-11.0)
[2018-04-28 06:20] LABS: Scan Indicated on CBC? Y/N NO
[2018-04-28 06:42] LABS: Anion Gap 10 (5-15); BUN 21 mg/dL (7-18); BUN/Creat Ratio 21.6 RATIO (10-20); Calcium,Total 8.9 mg/dL (8.5-10.1); Chloride 95 mmol/L (98-107); Creatinine, Serum 0.97 mg/dL (0.70-1.30); EST Glomerular Filtration Rate 85 mL/min (>60); Est Glom Filt Rate - Afr Amer 103 mL/min (>60); Estimated Creatinine Clearance 87.06 ml/min; Glucose 115 mg/dL (74-106); Magnesium 2.5 mg/dL (1.6-2.6); Potassium 3.6 mmol/L (3.5-5.1); Sodium Level 138 mmol/L (136-145)
--- NOTE | 2018-04-28 07:21 | PN_ITS ---
Patient Problems: Active and Suspected Problems Cellulitis of left foot (Acute) Edema (Acute) Subjective: Seen admit to some improvements in his overall condition plan is for patient to be discharged home later this morning Objective: GENERAL: cooperative HEENT: Atraumatic; moist oral mucosa EYES; Anicteric, Normal Conjunctiva NECK; supple, normal thyroid, no distended JVD. RESPIRATORY: Diminished to auscultation bilaterally, CARDIOVASCULAR: Regular S1 S2, no audible murmurs GI: soft, non-tender, normoactive bowel sounds, : No Renal angle tenderness; EXTREMITIES: 2+ bilateral edema, no clubbing, no cyanosis. MUSCULOSKELETAL: Movement restricted in the left knee NEURO: Awake; no lateralizing signs. SKIN: Area of erythema on the dorsal surface of both feet PSYCH; Normal affect Vitals/I&O's: Vital Signs Temp Pulse Resp BP Pulse Ox 97.5 F L 79 14 128/77 H 94 04/28/18 03:00 04/28/18 03:00 04/28/18 03:00 04/28/18 03:00 04/28/18 03:00 Oxygen Delivery Method Room Air Weight: 152.2 kg Body Mass Index (BMI) 49.5 Intake and Output for Last 24 Hours 04/26/18 04/27/18 04/28/18 23:59 23:59 23:59 Intake Total 4870 / 4870 1020 / 1020 Output Total 5025 / 5025 1700 / 1700 Balance -155 / -155 -680 / -680 Laboratory Results 04/27/18 05:40: Magnesium 2.2 04/27/18 05:40: B-Natriuretic Peptide 14.8 04/28/18 05:45: WBC 9.1, RBC 4.01 L, Hgb 12.2 L, Hct 38.5 L, MCV 96.0 H, MCH 30.4, MCHC 31.7 L, RDW 13.1, RDW Differential 45.5 H, Plt Count 377, MPV 9.1 04/28/18 05:45: Sodium 138, Potassium 3.6, Chloride 95 L, Carbon Dioxide 33.0 H, Anion Gap 10, BUN 21 H, Creatinine 0.97, Estim Creat Clear Calc 87.06, Est GFR (MDRD) Af Amer 103, Est GFR (MDRD) Non-Af 85, BUN/Creatinine Ratio 21.6 H, Glucose 115 H, Calcium 8.9, Magnesium 2.5 Current Medications Allopurinol (Zyloprim) 300 mg PO DAILYCM [facility] Last Admin: 04/27/18 09:09 Dose: 300 mg Colchicine (Colchicine) 0.6 mg PO DAILY [facility] Last Admin: 04/27/18 09:15 Dose: 0.6 mg Cyclobenzaprine HCl (Flexeril) 10 mg PO TID PRN PRN PRN Reason: leg cramps/spasms Last Admin: 04/27/18 03:21 Dose: 10 mg Enoxaparin Sodium (Lovenox) 40 mg SC DAILY@1000 [facility] Last Admin: 04/27/18 09:15 Dose: 40 mg Furosemide (Lasix) 40 mg IV Q8 [facility] Last Admin: 04/28/18 05:38 Dose: 40 mg Hydromorphone HCl (Dilaudid Inj) 1 mg IV Q2H PRN PRN PRN Reason: SEVERE PAIN (6-10/10) Last Admin: 04/27/18 12:21 Dose: 1 mg Sodium Chloride () 250 mls @ 15 mls/hr IV .[id number] PRN PRN Reason: SALINE FLUSH Cefazolin Sodium 2 gm/ Sodium (Chloride) 110 mls @ 150 mls/hr IV Q8 [facility] Last Admin: 04/28/18 05:38 Dose: 150 mls/hr Ketorolac Tromethamine (Toradol) 15 mg IV Q6 [facility] Stop: 04/29/18 06:01 Last Admin: 04/28/18 05:38 Dose: 15 mg Magnesium Hydroxide (Milk Of Magnesia) 30 ml PO DAILY PRN PRN PRN Reason: Constipation Morphine Sulfate () 4 mg IV Q2H PRN PRN PRN Reason: SEVERE PAIN (6-10/10) Last Admin: 04/27/18 02:12 Dose: 4 mg Potassium Chloride (K-Dur) 20 meq PO BIDCM [facility] Last Admin: 04/27/18 17:52 Dose: 20 meq Sodium Chloride () 5 - 30 ml IV UD PRN PRN Reason: SALINE FLUSH Last Admin: 04/27/18 23:08 Dose: 10 ml Medical Necessity - Tobacco Use Smoking Status: Never smoker Assessment/Plan All Active Problems Cellulitis of left foot (Acute) Edema (Acute) Patient is a 52-year-old gentleman first seen in the ER on April 14 following a fall present back with pain in both knees. He was also found to have erythema involving the dorsal surface of both feet consistent with cellulitis. And underwent subsequent evaluation with imaging studies no fractures were found he was however found to have a complex popliteal cyst. Admitted to regular nursing floor for further management 1. Bilateral lower extremity cellulitis: Admitted to regular nursing floor started on vancomycin and cefazolin patient area of infection delineated 2. Gout patient is on allopurinol as well as colchicine 3. Complex popliteal cyst (questionable ruptured Martinez's cyst) plan is to treat symptomatically 4. Morbid obesity with BMI of 49.6 lifestyle modification including weight loss advised 5. Hypokalemia corrected per protocol 6. DVT prophylaxis SC Lovenox Active Medications Allopurinol (Zyloprim) 300 mg PO DAILYCM [facility] Colchicine (Colchicine) 0.6 mg PO DAILY [facility] Cyclobenzaprine HCl (Flexeril) 10 mg PO TID PRN PRN PRN Reason: leg cramps/spasms Last Admin: 04/27/18 03:21 Dose: 10 mg Enoxaparin Sodium (Lovenox) 40 mg SC DAILY@1000 [facility] Hydromorphone HCl (Dilaudid Inj) 1 mg IV Q2H PRN PRN PRN Reason: SEVERE PAIN (6-10) Last Admin: 04/27/18 04:49 Dose: 1 mg Vancomycin IV Pharmacy to Dose (1 ea/ Sodium Chloride) 500 mls @ 250 mls/hr IV X1 PRN; Protocol PRN Reason: Rx to Dose Sodium Chloride () 250 mls @ 15 mls/hr IV .[id number] PRN PRN Reason: SALINE FLUSH Vancomycin HCl 1,750 mg/ (Sodium Chloride) 535 mls @ 250 mls/hr IV Q12H [facility] Magnesium Hydroxide (Milk Of Magnesia) 30 ml PO DAILY PRN PRN PRN Reason: Constipation Morphine Sulfate () 4 mg IV Q2H PRN PRN PRN Reason: SEVERE PAIN (6-10/10) Last Admin: 04/27/18 02:12 Dose: 4 mg Sodium Chloride () 5 - 30 ml IV UD PRN PRN Reason: SALINE FLUSH Last Admin: 04/27/18 04:49 Dose: 10 ml Clinical Impression(s) from Imaging Studies Venous Duplex 04/26/18 20:20 IMPRESSION: 1. No evidence of DVT. 2. Complex popliteal cyst. Electronically Signed: Maria Victoria Ramirez MD at 21:18 EST Tel , Service support , Knee X-Ray 04/26/18 20:25 IMPRESSION: 1. Small joint effusion. 2. Mild degenerative changes. Otherwise unremarkable study. Electronically Signed: Maria Victoria Ramirez MD at 20:50 EST Tel , Service support ,
--- NOTE | 2018-04-28 08:08 | DCINST_ITS ---
- Discharge Diagnoses Current Active Problems: Current Active and Chronic Problems Cellulitis of left foot (Acute) Gout (Chronic) Edema (Acute) You will use the following diet at home:: No restrictions Discharge Activity: May not drive while taking narcotic pain medications. Allergies/Adverse Reactions: Allergies diphenhydramine [From Benadryl] Allergy (Verified 04/26/18 19:52) Other Penicillins [PCN] Allergy (Verified 04/26/18 19:52) Unknown Medications to take at Discharge Allopurinol [Zyloprim] 300 mg PO DAILYCM 08/26/17 Colchicine 0.6 mg PO DAILY 04/14/18 Cephalexin [Keflex] 500 mg PO Q8 #20 capsule 04/28/18 Cyclobenzaprine [Flexeril] 10 mg PO TID PRN PRN #15 tablet 04/28/18 Furosemide [Lasix] 40 mg PO BIDLX #20 tablet 04/28/18 Oxycodone HCl/Acetaminophen [Percocet 5-325] 1 tablet PO Q6H PRN PRN 4 Days #16 tablet 04/28/18 Potassium Chloride [K-Dur] 20 meq PO BIDCM #20 tablet 04/28/18 The following prescriptions were given: Cephalexin [Keflex] 500 mg PO Q8 #20 capsule Cyclobenzaprine [Flexeril] 10 mg PO TID PRN PRN #15 tablet PRN Reason: leg cramps/spasms Furosemide [Lasix] 40 mg PO BIDLX #20 tablet Oxycodone HCl/Acetaminophen [Percocet 5-325] 1 tablet PO Q6H PRN PRN 4 Days #16 tablet PRN Reason: Pain Potassium Chloride [K-Dur] 20 meq PO BIDCM #20 tablet Primary Care Physician: [facility] Doctor,Out of [NON-STAFF] - Please follow up with your Primary Care Physician in: in 5-7 days Test Results: Test results from this visit will be discussed in further detail at your follow- up appointment, if applicable. Proposed Discharge Date: 04/28/18
--- NOTE | 2018-04-28 08:09 | PCM.DC.SUM ---
Discharge Date and Diagnosis - Problem List Patient Problems: Active and Suspected Problems Cellulitis of left foot (Acute) Edema (Acute) Date of Admission: 04/26/18 Date of Discharge: 04/28/18 - Primary Discharge Diagnosis Active and Suspected Problems Cellulitis of left foot (Acute) Edema (Acute) - Secondary Discharge Diagnosis Chronic Problems Gout (Chronic) Hospital Course and Treatment Imaging Results: Clinical Impression(s) from Imaging Studies Venous Duplex 04/26/18 20:20 IMPRESSION: 1. No evidence of DVT. 2. Complex popliteal cyst. Electronically Signed: Maria Victoria Ramirez MD at 21:18 EST Tel , Service support , Knee X-Ray 04/26/18 20:25 IMPRESSION: 1. Small joint effusion. 2. Mild degenerative changes. Otherwise unremarkable study. Electronically Signed: Maria Victoria Ramirez MD at 20:50 EST Tel , Service support , Summary of Care Provided: Patient is a 52-year-old gentleman first seen in the ER on April 14 following a fall present back with pain in both knees. He was also found to have erythema involving the dorsal surface of both feet consistent with cellulitis. And underwent subsequent evaluation with imaging studies no fractures were found he was however found to have a complex popliteal cyst. Admitted to regular nursing floor for further management 1. Bilateral lower extremity cellulitis: Admitted to regular nursing floor started on vancomycin and cefazolin patient area of infection delineated vancomycin was later discontinued patient did improve on cefazolin discharged home on Keflex 2. Gout patient is on allopurinol as well as colchicine 3. Complex popliteal cyst (questionable ruptured Martinez's cyst) treated symptomatically 4. Morbid obesity with BMI of 49.6 lifestyle modification including weight loss advised 5. Hypokalemia corrected per protocol 6. DVT prophylaxis SC Lovenox Patient Problems: Active and Suspected Problems Cellulitis of left foot (Acute) Edema (Acute) Objective: GENERAL: cooperative HEENT: Atraumatic; moist oral mucosa EYES; Anicteric, Normal Conjunctiva NECK; supple, normal thyroid, no distended JVD. RESPIRATORY: Diminished to auscultation bilaterally, CARDIOVASCULAR: Regular S1 S2, no audible murmurs GI: soft, non-tender, normoactive bowel sounds, SKIN: Area of erythema on the dorsal surface of both feet PSYCH; Normal affect - Physical Exam Vital Signs Temp Pulse Resp BP Pulse Ox 97.5 F L 79 14 128/77 H 94 04/28/18 03:00 04/28/18 03:00 04/28/18 03:00 04/28/18 03:00 04/28/18 03:00 Oxygen Delivery Method Room Air Weight: 152.2 kg Body Mass Index (BMI) 49.5 Intake and Output for Last 24 Hours 04/26/18 04/27/18 04/28/18 23:59 23:59 23:59 Intake Total 4870 / 4870 1020 / 1020 Output Total 5025 / 5025 1700 / 1700 Balance -155 / -155 -680 / -680 Laboratory Tests Past 24 Hrs 04/27/18 04/27/18 04/28/18 05:40 05:40 05:45 WBC 9.1 RBC 4.01 L Hgb 12.2 L Hct 38.5 L MCV 96.0 H MCH 30.4 MCHC 31.7 L RDW 13.1 RDW Differential 45.5 H Plt Count 377 MPV 9.1 Sodium Potassium Chloride Carbon Dioxide Anion Gap BUN Creatinine Estim Creat Clear Calc Est GFR (MDRD) Af Amer Est GFR (MDRD) Non-Af BUN/Creatinine Ratio Glucose Calcium Magnesium 2.2 B-Natriuretic Peptide 14.8 04/28/18 05:45 WBC RBC Hgb Hct MCV MCH MCHC RDW RDW Differential Plt Count MPV Sodium 138 Potassium 3.6 Chloride 95 L Carbon Dioxide 33.0 H Anion Gap 10 BUN 21 H Creatinine 0.97 Estim Creat Clear Calc 87.06 Est GFR (MDRD) Af Amer 103 Est GFR (MDRD) Non-Af 85 BUN/Creatinine Ratio 21.6 H Glucose 115 H Calcium 8.9 Magnesium 2.5 B-Natriuretic Peptide Discharge Activity: May not drive while taking narcotic pain medications. Home Medications: Medications to take at Discharge Allopurinol [Zyloprim] 300 mg PO DAILYCM 08/26/17 Colchicine 0.6 mg PO DAILY 04/14/18 Cephalexin [Keflex] 500 mg PO Q8 #20 capsule 04/28/18 Cyclobenzaprine [Flexeril] 10 mg PO TID PRN PRN #15 tablet 04/28/18 Furosemide [Lasix] 40 mg PO BIDLX #20 tablet 04/28/18 Oxycodone HCl/Acetaminophen [Percocet 5-325] 1 tablet PO Q6H PRN PRN 4 Days #16 tablet 04/28/18 Potassium Chloride [K-Dur] 20 meq PO BIDCM #20 tablet 04/28/18 Following Prescrptions Were Given to Patient: Cephalexin [Keflex] 500 mg PO Q8 #20 capsule Cyclobenzaprine [Flexeril] 10 mg PO TID PRN PRN #15 tablet PRN Reason: leg cramps/spasms Furosemide [Lasix] 40 mg PO BIDLX #20 tablet Oxycodone HCl/Acetaminophen [Percocet 5-325] 1 tablet PO Q6H PRN PRN 4 Days #16 tablet PRN Reason: Pain Potassium Chloride [K-Dur] 20 meq PO BIDCM #20 tablet Primary Care Physician: [facility] Doctor,Out of [NON-STAFF] - Please follow up with your Primary Care Physician in: in 5-7 days Disposition: Home Minutes spent on discharge:: 40 Patient Condition:: Stable Medical Necessity - Tobacco Use Smoking Status: Never smoker Meaningful Use Info Meaningful Use Diagnoses (Choose all that apply): None applicable Code Visit Inpatient E&M: 70910 Disch Hosp
[2018-04-28] MEDS: Allopurinol 300 MG Tablet PO (08:11)
[2018-04-28 08:12] VITALS: BP 119/69; PULSE 81; RESP 18; TEMP 37.1; O2SAT 99
== END 2018-04-28 10:43 | disposition home or self-care (01) | DRG 603 ==
LOC: ED 21:48 → MS3 23:38
PROVIDERS: Admitting Provider Family Medicine; Emergency Provider Emergency Medicine; Family Provider Family Medicine; PCP Family Medicine; Visit Provider Internal Medicine
DX: L03.116 Cellulitis of left lower limb (principal); Z68.42 Body mass index [BMI] 45.0-49.9, adult; E66.01 Morbid (severe) obesity due to excess calories; L03.115 Cellulitis of right lower limb; M10.9 Gout, unspecified; M66.0 Rupture of popliteal cyst
CPT/HCPCS: 36415; 73564; 80048; 80053; 83605; 83735; 83880; 84550; 85025; 85027; 87040; 93306; 93971; 97162; 97166; 99282; J7040; Q9957; A4216; C8929; J1940; J2405

== ENCOUNTER → 2020-10-30 08:44 | Outpatient (CLI) | payer SELFPAY ==
[2020-10-30 08:58] VITALS: BMI 49.3
[2020-10-30 09:01] VITALS: BP 158/80; PULSE 82; RESP 18; TEMP 35.7; O2SAT 97; BMI 49.3
[2020-10-30] MEDS: 0.9% NaCl IVPB Med Flush (250 mL) 15 ML IV (09:13)
[2020-10-30] MEDS: 0.9% NaCl PICC Flush IV ×2 (09:14→10:46)
[2020-10-30 09:33] LABS: Absolute Lymphocyte Count 2.28 X10^3/uL (0.83-4.51); Absolute Neutrophil Count 3.7 X10^3/uL (2.0-7.7); Basophil# 0.03 X10^3/uL; Basophil% 0.4 % (0-1); Eosinophil# 0.24 X10^3/uL; Eosinophils% 3.6 % (0-5); Hematocrit 36.8 % (40-54); Hemoglobin 11.6 g/dL (13.0-16.5); Lymphocyte # 2.28 X10^3/ul (0.83-4.51); Lymphocyte % 33.8 % (19-41); Mean Corp Hgb Conc 31.5 g/dL (32-36); Mean Corpuscular Hgb 30.8 pg (27.0-32.0); Mean Corpuscular Volume 97.6 fL (80-94); Mean Platelet Vol. 9.2 fl (6.2-12.0); Monocyte# 0.46 X10^3/uL; Monocyte% 6.8 % (0-10); NRBC Flagged by Analyzer 0 % (0-5); Neutrophil # 3.69 X10^3/uL (2.7-7.7); Neutrophil % 54.7 % (47-70); Platelet Count 360 K/mm3 (150-450); RBC Distribution Width CV 13.5 % (11.6-14.6); RBC Distribution Width SD 47.8 fl (35.1-43.9); Red Blood Count 3.77 M/mm3 (4.6-6.2); White Blood Count 6.8 K/mm3 (4.4-11.0)
[2020-10-30 09:38] LABS: Erythrocyte Sedimentation Rate 44 mm/hr (0-20)
[2020-10-30 09:47] LABS: ALB/GLOB Ratio 0.8 RATIO (0.9-2.4); AST(SGOT) 16 U/L (15-37); Alanine Aminotransfer ALT/SGPT 26 U/L (16-61); Albumin, Serum 3.3 g/dL (3.2-5.0); Alkaline Phosphatase 126 U/L (45-117); Anion Gap 2 (5-15); BUN 17 mg/dL (7-18); BUN/Creat Ratio 19.2 RATIO (10-20); CPK Total, Creatine Kinase 34 U/L (39-308); CRP 7.96 mg/L (0.0-3.0); Calcium,Total 8.9 mg/dL (8.5-10.1); Chloride 103 mmol/L (98-107); Creatinine, Serum 0.88 mg/dL (0.70-1.30); EST Glomerular Filtration Rate 94 mL/min (>60); Est Glom Filt Rate - Afr Amer 114 mL/min (>60); Glucose 104 mg/dL (74-106); Potassium 3.7 mmol/L (3.5-5.1); Protein, Total 7.3 g/dL (6.4-8.2); Sodium Level 136 mmol/L (136-145)
[2020-10-30 10:45] VITALS: BP 144/77; PULSE 74; TEMP 36.1; O2SAT 98
[2020-10-30 17:29] LABS: Xtra Tube EP Lab EXTRA TUBE
== END ==
PROVIDERS: PCP Family Medicine
DX: M86.162 Other acute osteomyelitis, left tibia and fibula (principal); B95.7 Other staphylococcus as the cause of diseases classified elsewhere
CPT/HCPCS: 96365; 36592; 80053; 82550; 85025; 85652; 86140; J0878; J7050; A4216; J3490

== ENCOUNTER → 2020-10-31 09:09 | Outpatient (CLI) | payer SELFPAY ==
[2020-10-30 09:01] VITALS: BMI 49.3
[2020-10-31 09:32] VITALS: BP 146/81; PULSE 75; RESP 18; TEMP 35.8; O2SAT 95; BMI 49.3
[2020-10-31] MEDS: 0.9% NaCl IVPB Med Flush (250 mL) 15 ML IV (09:47)
[2020-10-31] MEDS: 0.9% NaCl PICC Flush IV ×2 (09:48→11:41)
[2020-10-31 11:43] VITALS: BP 128/74; PULSE 72; RESP 16; TEMP 35.9
== END ==
PROVIDERS: PCP Family Medicine
DX: M86.162 Other acute osteomyelitis, left tibia and fibula (principal); B95.7 Other staphylococcus as the cause of diseases classified elsewhere
CPT/HCPCS: 96365; J0878; J7050; A4216; J3490

== ENCOUNTER → 2020-11-01 08:26 | Outpatient (CLI) | payer SELFPAY ==
[2020-10-31 09:32] VITALS: BMI 49.3
[2020-11-01 08:31] VITALS: BP 137/73; PULSE 83; RESP 16; TEMP 36.3; O2SAT 97; BMI 45.6
[2020-11-01] MEDS: 0.9% Saline Lock 10 ML Syringe IV (10:01)
[2020-11-01 10:08] VITALS: BP 143/81; PULSE 75; RESP 16; TEMP 36.3; O2SAT 99
== END ==
PROVIDERS: PCP Family Medicine
DX: M86.162 Other acute osteomyelitis, left tibia and fibula (principal); B95.7 Other staphylococcus as the cause of diseases classified elsewhere
CPT/HCPCS: 96365; J0878; J7050; A4216; J3490

== ENCOUNTER → 2020-11-02 08:19 | Outpatient (CLI) | payer SELFPAY ==
[2020-11-01 08:31] VITALS: BMI 45.6
[2020-11-02] MEDS: 0.9% NaCl PICC Flush IV ×2 (08:28→09:34)
[2020-11-02 08:29] VITALS: BP 153/77; PULSE 81; RESP 16; TEMP 36.3; O2SAT 98
[2020-11-02] MEDS: 0.9% NaCl IVPB Med Flush (250 mL) 15 ML IV (08:29)
[2020-11-02 09:33] VITALS: BP 137/69; PULSE 75; RESP 16; TEMP 36.2; O2SAT 98
== END ==
PROVIDERS: PCP Family Medicine
DX: M86.162 Other acute osteomyelitis, left tibia and fibula (principal); B95.7 Other staphylococcus as the cause of diseases classified elsewhere
CPT/HCPCS: 96365; J0878; J7050; A4216; J3490

== ENCOUNTER 2020-11-03 07:57 | Outpatient (CLI) | payer SELFPAY ==
[2020-11-01 08:31] VITALS: BMI 45.6
[2020-11-03] MEDS: 0.9% Saline Lock 10 ML Syringe IV ×2 (08:45→09:41)
== END 2020-11-03 09:55 | disposition home or self-care (01) ==
LOC: MEDOUTP 07:59 → PCU 07:59
PROVIDERS: PCP Family Medicine
DX: M86.162 Other acute osteomyelitis, left tibia and fibula (principal); B95.7 Other staphylococcus as the cause of diseases classified elsewhere
CPT/HCPCS: 96365; J0878; J7050; A4216; J3490

== ENCOUNTER 2020-11-04 07:51 | Outpatient (CLI) | payer SELFPAY ==
[2020-11-01 08:31] VITALS: BMI 45.6
[2020-11-04 08:10] VITALS: BP 129/79; PULSE 86; RESP 18; TEMP 36.6; O2SAT 97
[2020-11-04] MEDS: 0.9% Saline Lock 10 ML Syringe IV ×3 (08:40→09:42)
--- NOTE | 2020-11-04 09:40 | NURSING ---
picc not flushed with heparin. pt states it doesn't get flushed with heparin.
== END 2020-11-04 09:52 ==
LOC: MEDOUTP 07:52 → MS3 07:53
PROVIDERS: PCP Family Medicine
DX: M86.162 Other acute osteomyelitis, left tibia and fibula (principal); B95.7 Other staphylococcus as the cause of diseases classified elsewhere
CPT/HCPCS: 96365; J0878; A4216; J3490

== ENCOUNTER 2020-11-05 07:36 | Outpatient (CLI) | payer SELFPAY ==
[2020-11-01 08:31] VITALS: BMI 45.6
[2020-11-05 07:47] VITALS: BP 137/75; PULSE 81; RESP 16; TEMP 36.6; O2SAT 100
[2020-11-05] MEDS: 0.9% Saline Lock 10 ML Syringe IV (10:10)
== END 2020-11-05 09:17 ==
LOC: MEDOUTP 07:39 → PCU 07:42
PROVIDERS: PCP Family Medicine
DX: M86.162 Other acute osteomyelitis, left tibia and fibula (principal); B95.7 Other staphylococcus as the cause of diseases classified elsewhere
CPT/HCPCS: 96365; J0878; J7040; A4216; J3490

== ENCOUNTER → 2020-11-06 08:22 | Outpatient (CLI) | payer SELFPAY ==
[2020-11-01 08:31] VITALS: BMI 45.6
[2020-11-06] MEDS: 0.9% NaCl PICC Flush IV ×2 (08:36→10:07)
[2020-11-06 08:44] VITALS: BP 127/78; PULSE 69; RESP 16; TEMP 36.1; O2SAT 96; BMI 50.5
[2020-11-06 08:47] LABS: Basophil% 0.3 % (0-1); Hemoglobin 11.4 g/dL (13.0-16.5); Lymphocyte % 36.3 % (19-41); Mean Corp Hgb Conc 31.7 g/dL (32-36); Mean Corpuscular Hgb 31.1 pg (27.0-32.0); Mean Corpuscular Volume 98.4 fL (80-94); Mean Platelet Vol. 9.5 fl (6.2-12.0); Neutrophil % 50.9 % (47-70); Platelet Count 254 K/mm3 (150-450); RBC Distribution Width CV 13.4 % (11.6-14.6); RBC Distribution Width SD 48.6 fl (35.1-43.9); Red Blood Count 3.66 M/mm3 (4.6-6.2)
[2020-11-06 08:48] LABS: Absolute Lymphocyte Count 2.17 X10^3/uL (0.83-4.51); Basophil# 0.02 X10^3/uL; Lymphocyte # 2.17 X10^3/ul (0.83-4.51); Monocyte# 0.42 X10^3/uL; NRBC Flagged by Analyzer 0 % (0-5); Neutrophil # 3.03 X10^3/uL (2.7-7.7)
[2020-11-06] MEDS: 0.9% NaCl IVPB Med Flush (250 mL) 15 ML IV (09:00)
[2020-11-06 09:04] LABS: ALB/GLOB Ratio 0.8 RATIO (0.9-2.4); AST(SGOT) 19 U/L (15-37); Alanine Aminotransfer ALT/SGPT 31 U/L (16-61); Albumin, Serum 3.4 g/dL (3.2-5.0); Alkaline Phosphatase 115 U/L (45-117); Anion Gap 4 (5-15); BUN 20 mg/dL (7-18); BUN/Creat Ratio 23.2 RATIO (10-20); Calcium,Total 8.9 mg/dL (8.5-10.1); Chloride 103 mmol/L (98-107); Creatinine, Serum 0.86 mg/dL (0.70-1.30); EST Glomerular Filtration Rate 97 mL/min (>60); Est Glom Filt Rate - Afr Amer 117 mL/min (>60); Estimated Creatinine Clearance 91.69 ml/min; Glucose 104 mg/dL (74-106); Potassium 4.1 mmol/L (3.5-5.1); Protein, Total 7.4 g/dL (6.4-8.2); Sodium Level 139 mmol/L (136-145)
[2020-11-06 09:06] LABS: CPK Total, Creatine Kinase 44 U/L (39-308); CRP 4.86 mg/L (0.0-3.0)
[2020-11-06 10:13] VITALS: BP 138/70; PULSE 73; RESP 16; TEMP 36.1; O2SAT 99
[2020-11-06 16:44] LABS: Xtra Tube EP Lab EXTRA TUBE
== END ==
PROVIDERS: PCP Family Medicine
DX: M86.162 Other acute osteomyelitis, left tibia and fibula (principal); B95.7 Other staphylococcus as the cause of diseases classified elsewhere
CPT/HCPCS: 96365; 36592; 80053; 82550; 85025; 86140; J0878; J7050; A4216; J3490

== ENCOUNTER → 2020-11-07 08:25 | Outpatient (CLI) | payer SELFPAY ==
[2020-11-06 08:44] VITALS: BMI 50.5
[2020-11-07 08:33] VITALS: BP 169/78; PULSE 85; RESP 16; TEMP 36; O2SAT 98; BMI 50.4
[2020-11-07] MEDS: 0.9% NaCl IVPB Med Flush (250 mL) 15 ML IV (08:36)
[2020-11-07] MEDS: 0.9% NaCl PICC Flush IV ×2 (08:37→09:56)
[2020-11-07 09:57] VITALS: BP 147/80; PULSE 80; RESP 18; TEMP 36.5; O2SAT 100
== END ==
PROVIDERS: PCP Family Medicine
DX: M86.162 Other acute osteomyelitis, left tibia and fibula (principal); B95.7 Other staphylococcus as the cause of diseases classified elsewhere
CPT/HCPCS: 96365; J0878; J7050; A4216; J3490

== ENCOUNTER → 2020-11-08 08:29 | Outpatient (CLI) | payer SELFPAY ==
[2020-11-07 08:33] VITALS: BMI 50.4
[2020-11-08 08:38] VITALS: BP 145/71; PULSE 82; RESP 16; TEMP 36; O2SAT 96; BMI 50.1
[2020-11-08] MEDS: 0.9% NaCl IVPB Med Flush (250 mL) 15 ML IV (08:46)
[2020-11-08] MEDS: 0.9% NaCl PICC Flush IV ×2 (08:46→09:48)
[2020-11-08 09:49] VITALS: BP 147/78; PULSE 77; RESP 18; TEMP 36.3; O2SAT 97
== END ==
PROVIDERS: PCP Family Medicine
DX: M86.162 Other acute osteomyelitis, left tibia and fibula (principal); B95.7 Other staphylococcus as the cause of diseases classified elsewhere
CPT/HCPCS: 96365; J0878; J7050; A4216; J3490

== ENCOUNTER → 2020-11-09 08:30 | Outpatient (CLI) | payer SELFPAY ==
[2020-11-08 08:38] VITALS: BMI 50.1
[2020-11-09] MEDS: 0.9% NaCl PICC Flush IV ×2 (08:34→09:40)
[2020-11-09] MEDS: 0.9% NaCl IVPB Med Flush (250 mL) 15 ML IV (08:37)
[2020-11-09 08:42] VITALS: BP 145/76; PULSE 72; RESP 16; TEMP 36.4; O2SAT 100; BMI 50.1
[2020-11-09 09:41] VITALS: BP 145/78; PULSE 71; RESP 16; TEMP 36.5; O2SAT 97
== END ==
PROVIDERS: PCP Family Medicine
DX: M86.162 Other acute osteomyelitis, left tibia and fibula (principal); B95.7 Other staphylococcus as the cause of diseases classified elsewhere
CPT/HCPCS: 96365; J0878; J7050; A4216; J3490

== ENCOUNTER 2020-11-10 07:48 | Outpatient (CLI) | payer SELFPAY ==
[2020-10-31 09:32] VITALS: BMI 49.3
[2020-11-09 08:42] VITALS: BMI 50.1
[2020-11-10 08:18] VITALS: BP 145/84; PULSE 78; RESP 18; TEMP 36.8; O2SAT 99; BMI 50.1
[2020-11-10] MEDS: 0.9% Saline Lock 10 ML Syringe IV ×2 (08:46→09:51)
== END 2020-11-10 09:55 ==
LOC: MEDOUTP 07:50 → MS3 07:55
PROVIDERS: PCP Family Medicine; Referring Provider Internal Medicine Infectious Disease; Visit Provider Internal Medicine Infectious Disease
DX: M86.162 Other acute osteomyelitis, left tibia and fibula (principal); B95.7 Other staphylococcus as the cause of diseases classified elsewhere
CPT/HCPCS: 96365; J0878; J7050; A4216; J3490

== ENCOUNTER 2020-11-11 07:45 | Outpatient (CLI) | payer SELFPAY ==
[2020-10-31 09:32] VITALS: BMI 49.3
[2020-11-10 08:18] VITALS: BMI 50.1
[2020-11-11] MEDS: 0.9% Saline Lock 10 ML Syringe IV (07:55)
[2020-11-11 08:08] VITALS: BP 121/69; PULSE 70; RESP 16; TEMP 36.4; O2SAT 97
== END 2020-11-11 09:25 ==
LOC: MEDOUTP 07:48 → MS3 07:50
PROVIDERS: PCP Family Medicine; Referring Provider Internal Medicine Infectious Disease; Visit Provider Internal Medicine Infectious Disease
DX: M86.162 Other acute osteomyelitis, left tibia and fibula (principal); B95.7 Other staphylococcus as the cause of diseases classified elsewhere
CPT/HCPCS: 96365; J0878; J7050; A4216; J3490

== ENCOUNTER → 2020-11-12 08:24 | Outpatient (CLI) | payer SELFPAY ==
[2020-10-31 09:32] VITALS: BMI 49.3
[2020-11-10 08:18] VITALS: BMI 50.1
[2020-11-12 08:36] VITALS: BP 151/76; PULSE 81; RESP 18; TEMP 36.2; O2SAT 98; BMI 50.1
[2020-11-12] MEDS: 0.9% NaCl PICC Flush IV (08:52)
[2020-11-12] MEDS: 0.9% NaCl IVPB Med Flush (250 mL) 15 ML IV (09:01)
[2020-11-12 10:07] VITALS: BP 142/78; PULSE 74; RESP 16; TEMP 36.3; O2SAT 99
== END ==
PROVIDERS: PCP Family Medicine; Referring Provider Internal Medicine Infectious Disease; Visit Provider Internal Medicine Infectious Disease
DX: M86.162 Other acute osteomyelitis, left tibia and fibula (principal); B95.7 Other staphylococcus as the cause of diseases classified elsewhere
CPT/HCPCS: 96365; J0878; J7050; A4216; J3490

== ENCOUNTER → 2020-11-13 08:21 | Outpatient (CLI) | payer SELFPAY ==
[2020-10-31 09:32] VITALS: BMI 49.3
[2020-11-12 08:36] VITALS: BMI 50.1
[2020-11-13 08:39] VITALS: BP 137/74; PULSE 75; RESP 16; TEMP 35.9; O2SAT 95
[2020-11-13] MEDS: 0.9% NaCl PICC Flush IV ×2 (08:51→10:03)
[2020-11-13] MEDS: 0.9% NaCl IVPB Med Flush (250 mL) 15 ML IV (08:57)
[2020-11-13 09:04] LABS: Absolute Lymphocyte Count 1.81 X10^3/uL (0.83-4.51); Absolute Neutrophil Count 2.7 X10^3/uL (2.0-7.7); Basophil# 0.03 X10^3/uL; Basophil% 0.6 % (0-1); Eosinophil# 0.32 X10^3/uL; Eosinophils% 6.1 % (0-5); Hematocrit 36.5 % (40-54); Hemoglobin 11.6 g/dL (13.0-16.5); Lymphocyte # 1.81 X10^3/ul (0.83-4.51); Lymphocyte % 34.3 % (19-41); Mean Corp Hgb Conc 31.8 g/dL (32-36); Mean Corpuscular Volume 97.6 fL (80-94); Mean Platelet Vol. 9.5 fl (6.2-12.0); Monocyte# 0.39 X10^3/uL; Monocyte% 7.4 % (0-10); NRBC Flagged by Analyzer 0 % (0-5); Neutrophil # 2.71 X10^3/uL (2.7-7.7); Neutrophil % 51.4 % (47-70); Platelet Count 232 K/mm3 (150-450); RBC Distribution Width CV 13.9 % (11.6-14.6); RBC Distribution Width SD 50.1 fl (35.1-43.9); Red Blood Count 3.74 M/mm3 (4.6-6.2); White Blood Count 5.3 K/mm3 (4.4-11.0)
[2020-11-13 09:10] LABS: Erythrocyte Sedimentation Rate 30 mm/hr (0-20)
[2020-11-13 09:19] LABS: ALB/GLOB Ratio 0.8 RATIO (0.9-2.4); AST(SGOT) 111 U/L (15-37); Alanine Aminotransfer ALT/SGPT 222 U/L (16-61); Albumin, Serum 3.3 g/dL (3.2-5.0); Alkaline Phosphatase 132 U/L (45-117); Anion Gap 4 (5-15); BUN 21 mg/dL (7-18); BUN/Creat Ratio 25.9 RATIO (10-20); CPK Total, Creatine Kinase 69 U/L (39-308); CRP 5.73 mg/L (0.0-3.0); Calcium,Total 8.8 mg/dL (8.5-10.1); Chloride 103 mmol/L (98-107); Creatinine, Serum 0.81 mg/dL (0.70-1.30); EST Glomerular Filtration Rate 104 mL/min (>60); Est Glom Filt Rate - Afr Amer 126 mL/min (>60); Globulin 3.9 g/dL (2.2-4.2); Glucose 104 mg/dL (74-106); Potassium 3.7 mmol/L (3.5-5.1); Protein, Total 7.2 g/dL (6.4-8.2); Sodium Level 138 mmol/L (136-145)
[2020-11-13 10:25] VITALS: BP 139/77; PULSE 69; RESP 16; TEMP 36.4; O2SAT 96
[2020-11-13 10:26] VITALS: BMI 50.7
[2020-11-13 16:56] LABS: Xtra Tube EP Lab EXTRA TUBE
== END ==
PROVIDERS: PCP Family Medicine; Referring Provider Internal Medicine Infectious Disease; Visit Provider Internal Medicine Infectious Disease
DX: M86.162 Other acute osteomyelitis, left tibia and fibula (principal); B95.7 Other staphylococcus as the cause of diseases classified elsewhere
CPT/HCPCS: 96365; 36592; 80053; 82550; 85025; 85652; 86140; J0878; J7050; A4216; J3490

== ENCOUNTER → 2020-11-14 08:27 | Outpatient (CLI) | payer SELFPAY ==
[2020-10-31 09:32] VITALS: BMI 49.3
[2020-11-13 10:26] VITALS: BMI 50.7
[2020-11-14 08:34] VITALS: BP 137/80; PULSE 80; RESP 16; TEMP 36.1; O2SAT 96
[2020-11-14] MEDS: 0.9% NaCl IVPB Med Flush (250 mL) 15 ML IV (08:40)
[2020-11-14] MEDS: 0.9% NaCl PICC Flush IV ×3 (08:40→09:39)
[2020-11-14 09:42] VITALS: BP 138/74; PULSE 73; RESP 16; O2SAT 94
== END ==
PROVIDERS: PCP Family Medicine; Referring Provider Internal Medicine Infectious Disease; Visit Provider Internal Medicine Infectious Disease
DX: M86.8X6 Other osteomyelitis, lower leg (principal); B95.7 Other staphylococcus as the cause of diseases classified elsewhere
CPT/HCPCS: 96365; J0878; J7050; A4216; J3490

== ENCOUNTER → 2020-11-15 08:24 | Outpatient (CLI) | payer SELFPAY ==
[2020-10-31 09:32] VITALS: BMI 49.3
[2020-11-13 10:26] VITALS: BMI 50.7
[2020-11-15 08:41] VITALS: BP 136/75; PULSE 77; RESP 16; TEMP 36.3; O2SAT 96
[2020-11-15] MEDS: 0.9% NaCl PICC Flush IV ×2 (08:43→09:42)
[2020-11-15] MEDS: 0.9% NaCl IVPB Med Flush (250 mL) 15 ML IV (08:43)
[2020-11-15 09:43] VITALS: BP 142/86; PULSE 72; RESP 16; TEMP 36.2; O2SAT 97
== END ==
PROVIDERS: PCP Family Medicine; Referring Provider Internal Medicine Infectious Disease; Visit Provider Internal Medicine Infectious Disease
DX: M86.8X6 Other osteomyelitis, lower leg (principal); B95.7 Other staphylococcus as the cause of diseases classified elsewhere
CPT/HCPCS: 96365; J0878; J7050; A4216; J3490

== ENCOUNTER → 2020-11-16 08:21 | Outpatient (CLI) | payer SELFPAY ==
[2020-10-31 09:32] VITALS: BMI 49.3
[2020-11-13 10:26] VITALS: BMI 50.7
[2020-11-16] MEDS: 0.9% NaCl IVPB Med Flush (250 mL) 15 ML IV (08:30)
[2020-11-16] MEDS: 0.9% NaCl PICC Flush IV ×2 (08:30→09:24)
[2020-11-16 08:31] VITALS: BP 139/73; PULSE 83; RESP 16; TEMP 36; O2SAT 95; BMI 50.6
[2020-11-16 09:25] VITALS: BP 140/80; PULSE 81; RESP 18; TEMP 36.1; O2SAT 95
== END ==
PROVIDERS: PCP Family Medicine; Referring Provider Internal Medicine Infectious Disease; Visit Provider Internal Medicine Infectious Disease
DX: S81.802A Unspecified open wound, left lower leg, initial encounter (principal); B95.7 Other staphylococcus as the cause of diseases classified elsewhere
CPT/HCPCS: 96365; J0878; J7050; A4216; J3490

== ENCOUNTER 2020-11-17 08:22 | Outpatient (CLI) | payer SELFPAY ==
[2020-10-31 09:32] VITALS: BMI 49.3
[2020-11-16 08:31] VITALS: BMI 50.6
[2020-11-17 08:34] VITALS: BP 141/76; PULSE 81; RESP 18; TEMP 36.5; O2SAT 98
[2020-11-17] MEDS: 0.9% Saline Lock 10 ML Syringe IV (08:39)
== END 2020-11-17 09:43 | disposition home or self-care (01) ==
LOC: MEDOUTP 08:23 → MS3 08:23
PROVIDERS: PCP Family Medicine; Referring Provider Internal Medicine Infectious Disease; Visit Provider Internal Medicine Infectious Disease
DX: S81.802A Unspecified open wound, left lower leg, initial encounter (principal); B95.7 Other staphylococcus as the cause of diseases classified elsewhere
CPT/HCPCS: 96365; J0878; J7050; A4216; J3490

== ENCOUNTER 2020-11-18 08:20 | Outpatient (CLI) | payer SELFPAY ==
[2020-10-31 09:32] VITALS: BMI 49.3
[2020-11-16 08:31] VITALS: BMI 50.6
[2020-11-18 08:20] VITALS: BP 124/88; PULSE 80; RESP 18; TEMP 36.6; O2SAT 97
[2020-11-18] MEDS: 0.9% Saline Lock 10 ML Syringe IV ×2 (09:30→10:09)
== END 2020-11-18 10:09 ==
LOC: MEDOUTP 08:20 → PCU 08:21
PROVIDERS: PCP Family Medicine; Referring Provider Internal Medicine Infectious Disease; Visit Provider Internal Medicine Infectious Disease
DX: S81.802A Unspecified open wound, left lower leg, initial encounter (principal); B95.7 Other staphylococcus as the cause of diseases classified elsewhere
CPT/HCPCS: 96365; J0878; J7050; A4216; J3490

== ENCOUNTER → 2020-11-19 08:21 | Outpatient (CLI) | payer SELFPAY ==
[2020-10-31 09:32] VITALS: BMI 49.3
[2020-11-16 08:31] VITALS: BMI 50.6
[2020-11-19 08:38] VITALS: BP 136/79; PULSE 76; RESP 16; TEMP 35.8; O2SAT 96; BMI 50.6
[2020-11-19] MEDS: 0.9% NaCl PICC Flush IV ×2 (08:38→10:10)
[2020-11-19] MEDS: 0.9% NaCl IVPB Med Flush (250 mL) 15 ML IV (09:03)
[2020-11-19 10:05] VITALS: BP 136/78; PULSE 73; RESP 16; TEMP 36; O2SAT 95
== END ==
PROVIDERS: PCP Family Medicine; Referring Provider Internal Medicine Infectious Disease; Visit Provider Internal Medicine Infectious Disease
DX: S81.802A Unspecified open wound, left lower leg, initial encounter (principal); B95.7 Other staphylococcus as the cause of diseases classified elsewhere
CPT/HCPCS: 96365; J0878; J7050; A4216; J3490

== ENCOUNTER → 2020-11-20 08:25 | Outpatient (CLI) | payer SELFPAY ==
[2020-10-31 09:32] VITALS: BMI 49.3
[2020-11-19 08:38] VITALS: BMI 50.6
[2020-11-20 08:40] VITALS: BP 129/76; PULSE 80; RESP 16; TEMP 35.9; O2SAT 95; BMI 49.6
[2020-11-20] MEDS: 0.9% NaCl PICC Flush IV ×2 (08:44→09:53)
[2020-11-20] MEDS: 0.9% NaCl IVPB Med Flush (250 mL) 15 ML IV (08:53)
[2020-11-20 09:06] LABS: Absolute Lymphocyte Count 2.62 X10^3/uL (0.83-4.51); Absolute Neutrophil Count 3.5 X10^3/uL (2.0-7.7); Basophil# 0.03 X10^3/uL; Basophil% 0.4 % (0-1); Eosinophil# 0.25 X10^3/uL; Eosinophils% 3.6 % (0-5); Hematocrit 39.9 % (40-54); Hemoglobin 12.9 g/dL (13.0-16.5); Lymphocyte # 2.62 X10^3/ul (0.83-4.51); Lymphocyte % 37.9 % (19-41); Mean Corp Hgb Conc 32.3 g/dL (32-36); Mean Corpuscular Hgb 31.5 pg (27.0-32.0); Mean Corpuscular Volume 97.6 fL (80-94); Mean Platelet Vol. 9.6 fl (6.2-12.0); Monocyte# 0.53 X10^3/uL; Monocyte% 7.7 % (0-10); NRBC Flagged by Analyzer 0 % (0-5); Neutrophil # 3.47 X10^3/uL (2.7-7.7); Neutrophil % 50.1 % (47-70); Platelet Count 288 K/mm3 (150-450); RBC Distribution Width CV 13.9 % (11.6-14.6); RBC Distribution Width SD 50.5 fl (35.1-43.9); Red Blood Count 4.09 M/mm3 (4.6-6.2); White Blood Count 6.9 K/mm3 (4.4-11.0)
[2020-11-20 09:17] LABS: Erythrocyte Sedimentation Rate 33 mm/hr (0-20)
[2020-11-20 09:33] LABS: ALB/GLOB Ratio 0.9 RATIO (0.9-2.4); AST(SGOT) 28 U/L (15-37); Alanine Aminotransfer ALT/SGPT 102 U/L (16-61); Albumin, Serum 3.6 g/dL (3.2-5.0); Alkaline Phosphatase 118 U/L (45-117); Anion Gap 4 (5-15); BUN 20 mg/dL (7-18); BUN/Creat Ratio 19.2 RATIO (10-20); CPK Total, Creatine Kinase 76 U/L (39-308); CRP < 2.90 mg/L (0.0-3.0); Calcium,Total 9.2 mg/dL (8.5-10.1); Chloride 103 mmol/L (98-107); Creatinine, Serum 1.04 mg/dL (0.70-1.30); EST Glomerular Filtration Rate 78 mL/min (>60); Est Glom Filt Rate - Afr Amer 95 mL/min (>60); Estimated Creatinine Clearance 75.82 ml/min; Globulin 4.2 g/dL (2.2-4.2); Glucose 96 mg/dL (74-106); Potassium 4.2 mmol/L (3.5-5.1); Protein, Total 7.8 g/dL (6.4-8.2); Sodium Level 138 mmol/L (136-145)
[2020-11-20 17:03] LABS: Xtra Tube EP Lab EXTRA TUBE
== END ==
PROVIDERS: PCP Family Medicine; Referring Provider Internal Medicine Infectious Disease; Visit Provider Internal Medicine Infectious Disease
DX: S81.802A Unspecified open wound, left lower leg, initial encounter (principal); B95.7 Other staphylococcus as the cause of diseases classified elsewhere
CPT/HCPCS: 96365; 36592; 80053; 82550; 85025; 85652; 86140; J0878; J7050; A4216; J3490

== ENCOUNTER → 2020-11-21 08:29 | Outpatient (CLI) | payer SELFPAY ==
[2020-10-31 09:32] VITALS: BMI 49.3
[2020-11-20 08:40] VITALS: BMI 49.6
[2020-11-21 08:34] VITALS: BP 142/80; PULSE 85; RESP 18; TEMP 35.8; O2SAT 97; BMI 49.6
[2020-11-21] MEDS: 0.9% NaCl IVPB Med Flush (250 mL) 15 ML IV (08:56)
[2020-11-21] MEDS: 0.9% NaCl PICC Flush IV ×2 (08:59→10:12)
[2020-11-21 10:13] VITALS: BP 123/74; PULSE 73; RESP 16; TEMP 36.1; O2SAT 96
== END ==
PROVIDERS: PCP Family Medicine; Referring Provider Internal Medicine Infectious Disease; Visit Provider Internal Medicine Infectious Disease
DX: M86.8X6 Other osteomyelitis, lower leg (principal); B95.7 Other staphylococcus as the cause of diseases classified elsewhere
CPT/HCPCS: 96365; J0878; J7050; A4216; J3490

== ENCOUNTER → 2020-11-22 08:26 | Outpatient (CLI) | payer SELFPAY ==
[2020-10-31 09:32] VITALS: BMI 49.3
[2020-11-21 08:34] VITALS: BMI 49.6
[2020-11-22 08:31] VITALS: BP 141/76; PULSE 80; RESP 16; TEMP 35.7; O2SAT 96
[2020-11-22] MEDS: 0.9% NaCl IVPB Med Flush (250 mL) 15 ML IV (08:37)
[2020-11-22] MEDS: 0.9% NaCl PICC Flush IV ×2 (08:37→09:34)
== END ==
PROVIDERS: PCP Family Medicine; Referring Provider Internal Medicine Infectious Disease; Visit Provider Internal Medicine Infectious Disease
DX: M86.8X6 Other osteomyelitis, lower leg (principal); B95.7 Other staphylococcus as the cause of diseases classified elsewhere
CPT/HCPCS: 96365; J0878; J7050; A4216; J3490

== ENCOUNTER → 2020-11-23 08:27 | Outpatient (CLI) | payer SELFPAY ==
[2020-10-31 09:32] VITALS: BMI 49.3
[2020-11-21 08:34] VITALS: BMI 49.6
[2020-11-23 08:32] VITALS: BP 136/74; PULSE 78; RESP 16; TEMP 35.7; O2SAT 95; BMI 49.6
[2020-11-23] MEDS: 0.9% NaCl IVPB Med Flush (250 mL) 15 ML IV (09:11)
[2020-11-23] MEDS: 0.9% NaCl PICC Flush IV (10:08)
== END ==
PROVIDERS: PCP Family Medicine; Referring Provider Internal Medicine Infectious Disease; Visit Provider Internal Medicine Infectious Disease
DX: M86.8X6 Other osteomyelitis, lower leg (principal); B95.7 Other staphylococcus as the cause of diseases classified elsewhere
CPT/HCPCS: 96365; J0878; J7050; A4216; J3490

== ENCOUNTER 2020-11-24 08:20 | Outpatient (CLI) | payer SELFPAY ==
[2020-10-31 09:32] VITALS: BMI 49.3
[2020-11-21 08:34] VITALS: BMI 49.6
[2020-11-24] MEDS: 0.9% Saline Lock 10 ML Syringe IV ×2 (08:45→09:52)
[2020-11-24 08:47] VITALS: BP 123/76; PULSE 80; RESP 17; TEMP 37; O2SAT 98
== END 2020-11-24 09:56 | disposition home or self-care (01) ==
LOC: MEDOUTP 08:21 → MS3 08:52
PROVIDERS: PCP Family Medicine; Referring Provider Internal Medicine Infectious Disease; Visit Provider Internal Medicine Infectious Disease
DX: M86.162 Other acute osteomyelitis, left tibia and fibula (principal)
CPT/HCPCS: 96365; J0878; J7050; A4216; J3490

== ENCOUNTER 2020-11-25 08:22 | Outpatient (CLI) | payer SELFPAY ==
[2020-10-31 09:32] VITALS: BMI 49.3
[2020-11-23 08:32] VITALS: BMI 49.6
[2020-11-25] MEDS: 0.9% Saline Lock 10 ML Syringe IV ×2 (08:20→09:19)
[2020-11-25 08:46] VITALS: BP 123/76; PULSE 78; RESP 18; O2SAT 98
== END 2020-11-25 09:23 | disposition home or self-care (01) ==
LOC: MEDOUTP 08:23 → MS3 08:24
PROVIDERS: PCP Family Medicine; Referring Provider Internal Medicine Infectious Disease; Visit Provider Internal Medicine Infectious Disease
DX: M86.162 Other acute osteomyelitis, left tibia and fibula (principal)
CPT/HCPCS: 96365; J0878; J7050; A4216; J3490

== ENCOUNTER → 2020-11-26 08:20 | Outpatient (CLI) | payer SELFPAY ==
[2020-11-21 08:34] VITALS: BMI 49.6
[2020-11-23 08:32] VITALS: BMI 49.6
[2020-11-26 08:33] VITALS: BP 145/73; PULSE 79; RESP 16; TEMP 36.3; O2SAT 97; BMI 49.6
[2020-11-26] MEDS: 0.9% NaCl IVPB Med Flush (250 mL) 15 ML IV (08:33)
[2020-11-26] MEDS: 0.9% NaCl PICC Flush IV ×2 (08:33→09:35)
[2020-11-26 09:35] VITALS: BP 150/82; PULSE 73; RESP 16; TEMP 36.5; O2SAT 98
== END ==
PROVIDERS: PCP Family Medicine; Referring Provider Internal Medicine Infectious Disease; Visit Provider Internal Medicine Infectious Disease
DX: M86.8X6 Other osteomyelitis, lower leg (principal); B95.7 Other staphylococcus as the cause of diseases classified elsewhere
CPT/HCPCS: 96365; J0878; J7050; A4216; J3490

== ENCOUNTER → 2020-11-27 08:18 | Outpatient (CLI) | payer SELFPAY ==
[2020-11-21 08:34] VITALS: BMI 49.6
[2020-11-26 08:33] VITALS: BMI 49.6
[2020-11-27] MEDS: 0.9% NaCl IVPB Med Flush (250 mL) 15 ML IV (08:44)
[2020-11-27] MEDS: 0.9% NaCl PICC Flush IV ×2 (08:46→09:38)
[2020-11-27 08:51] VITALS: BP 140/74; PULSE 79; RESP 16; TEMP 36; O2SAT 94; BMI 50.0
[2020-11-27 08:59] LABS: Absolute Lymphocyte Count 2.82 X10^3/uL (0.83-4.51); Absolute Neutrophil Count 3.4 X10^3/uL (2.0-7.7); Basophil# 0.04 X10^3/uL; Basophil% 0.6 % (0-1); Eosinophil# 0.25 X10^3/uL; Eosinophils% 3.6 % (0-5); Hematocrit 40.6 % (40-54); Hemoglobin 12.9 g/dL (13.0-16.5); Lymphocyte # 2.82 X10^3/ul (0.83-4.51); Lymphocyte % 40.2 % (19-41); Mean Corp Hgb Conc 31.8 g/dL (32-36); Mean Corpuscular Hgb 31.1 pg (27.0-32.0); Mean Corpuscular Volume 97.8 fL (80-94); Mean Platelet Vol. 9.6 fl (6.2-12.0); Monocyte# 0.51 X10^3/uL; Monocyte% 7.3 % (0-10); NRBC Flagged by Analyzer 0 % (0-5); Neutrophil # 3.38 X10^3/uL (2.7-7.7); Platelet Count 305 K/mm3 (150-450); RBC Distribution Width CV 13.4 % (11.6-14.6); RBC Distribution Width SD 47.9 fl (35.1-43.9); Red Blood Count 4.15 M/mm3 (4.6-6.2)
[2020-11-27 09:09] LABS: ALB/GLOB Ratio 0.8 RATIO (0.9-2.4); AST(SGOT) 23 U/L (15-37); Alanine Aminotransfer ALT/SGPT 50 U/L (16-61); Albumin, Serum 3.7 g/dL (3.2-5.0); Alkaline Phosphatase 106 U/L (45-117); Anion Gap 3 (5-15); BUN 21 mg/dL (7-18); BUN/Creat Ratio 22.8 RATIO (10-20); Calcium,Total 9.1 mg/dL (8.5-10.1); Chloride 103 mmol/L (98-107); Creatinine, Serum 0.92 mg/dL (0.70-1.30); EST Glomerular Filtration Rate 90 mL/min (>60); Est Glom Filt Rate - Afr Amer 109 mL/min (>60); Estimated Creatinine Clearance 85.71 ml/min; Globulin 4.4 g/dL (2.2-4.2); Glucose 104 mg/dL (74-106); Potassium 3.9 mmol/L (3.5-5.1); Protein, Total 8.1 g/dL (6.4-8.2); Sodium Level 139 mmol/L (136-145)
[2020-11-27 09:15] LABS: CPK Total, Creatine Kinase 63 U/L (39-308); CRP 4.04 mg/L (0.0-3.0); Ferritin 328 ng/mL (26-388)
[2020-11-27 09:54] VITALS: BP 125/77; PULSE 76; RESP 16; TEMP 35.9; O2SAT 97
[2020-11-27 16:52] LABS: Xtra Tube EP Lab EXTRA TUBE
== END ==
PROVIDERS: PCP Family Medicine; Referring Provider Internal Medicine Infectious Disease; Visit Provider Internal Medicine Infectious Disease
DX: M86.8X6 Other osteomyelitis, lower leg (principal); B95.7 Other staphylococcus as the cause of diseases classified elsewhere
CPT/HCPCS: 96365; 36592; 80053; 82550; 82728; 85025; 86140; J0878; J7050; A4216; J3490

== ENCOUNTER → 2020-11-28 08:21 | Outpatient (CLI) | payer SELFPAY ==
[2020-11-21 08:34] VITALS: BMI 49.6
[2020-11-27 08:51] VITALS: BMI 50.0
[2020-11-28] MEDS: 0.9% NaCl PICC Flush IV ×2 (08:27→09:27)
[2020-11-28] MEDS: 0.9% NaCl IVPB Med Flush (250 mL) 15 ML IV (08:27)
[2020-11-28 08:28] VITALS: BP 145/83; PULSE 80; RESP 16; TEMP 35.8; O2SAT 97
[2020-11-28 09:17] VITALS: BMI 50.0
== END ==
PROVIDERS: PCP Family Medicine; Referring Provider Internal Medicine Infectious Disease; Visit Provider Internal Medicine Infectious Disease
DX: M86.8X6 Other osteomyelitis, lower leg (principal); B95.7 Other staphylococcus as the cause of diseases classified elsewhere
CPT/HCPCS: 96365; J0878; J7050; A4216; J3490

== ENCOUNTER → 2020-11-29 08:22 | Outpatient (CLI) | payer SELFPAY ==
[2020-11-21 08:34] VITALS: BMI 49.6
[2020-11-28 09:17] VITALS: BMI 50.0
[2020-11-29 08:29] VITALS: BP 135/74; PULSE 81; RESP 16; TEMP 35.8; O2SAT 96
[2020-11-29] MEDS: 0.9% NaCl PICC Flush IV ×2 (08:35→09:34)
[2020-11-29] MEDS: 0.9% NaCl IVPB Med Flush (250 mL) 15 ML IV (08:35)
== END ==
PROVIDERS: PCP Family Medicine; Referring Provider Internal Medicine Infectious Disease; Visit Provider Internal Medicine Infectious Disease
DX: M86.8X6 Other osteomyelitis, lower leg (principal); B95.7 Other staphylococcus as the cause of diseases classified elsewhere
CPT/HCPCS: 96365; J0878; J7050; A4216; J3490

== ENCOUNTER → 2020-11-30 08:23 | Outpatient (CLI) | payer SELFPAY ==
[2020-11-21 08:34] VITALS: BMI 49.6
[2020-11-28 09:17] VITALS: BMI 50.0
[2020-11-30] MEDS: 0.9% NaCl IVPB Med Flush (250 mL) 15 ML IV (08:29)
[2020-11-30] MEDS: 0.9% NaCl PICC Flush IV ×3 (08:29→09:46)
[2020-11-30 08:44] VITALS: BP 132/81; PULSE 77; RESP 16; TEMP 36.2; O2SAT 97
== END ==
PROVIDERS: PCP Family Medicine; Referring Provider Internal Medicine Infectious Disease; Visit Provider Internal Medicine Infectious Disease
DX: M86.8X6 Other osteomyelitis, lower leg (principal); B95.7 Other staphylococcus as the cause of diseases classified elsewhere
CPT/HCPCS: 96365; J0878; J7050; A4216; J3490

== ENCOUNTER 2020-12-01 08:21 | Outpatient (CLI) | payer SELFPAY ==
[2020-11-21 08:34] VITALS: BMI 49.6
[2020-11-28 09:17] VITALS: BMI 50.0
[2020-12-01] MEDS: 0.9% Saline Lock 10 ML Syringe IV ×2 (08:30→09:25)
[2020-12-01 08:38] VITALS: BP 124/71; PULSE 75; RESP 18; TEMP 36.8; O2SAT 98
== END 2020-12-01 09:30 | disposition home or self-care (01) ==
LOC: MEDOUTP 08:21 → MS3 08:23
PROVIDERS: PCP Family Medicine; Referring Provider Internal Medicine Infectious Disease; Visit Provider Internal Medicine Infectious Disease
DX: M86.162 Other acute osteomyelitis, left tibia and fibula (principal)
CPT/HCPCS: 96365; J0878; J7050; A4216; J3490

== ENCOUNTER 2020-12-02 07:53 | Outpatient (CLI) | payer SELFPAY ==
[2020-11-21 08:34] VITALS: BMI 49.6
[2020-11-28 09:17] VITALS: BMI 50.0
[2020-12-02 08:26] VITALS: BP 129/80; PULSE 76; RESP 18; TEMP 36.3; O2SAT 97
== END 2020-12-02 08:45 | disposition home or self-care (01) ==
LOC: MEDOUTP 07:55 → MS3 07:57
PROVIDERS: PCP Family Medicine; Referring Provider Internal Medicine Infectious Disease; Visit Provider Internal Medicine Infectious Disease
DX: M86.8X6 Other osteomyelitis, lower leg (principal); B95.7 Other staphylococcus as the cause of diseases classified elsewhere
CPT/HCPCS: 96365; J0878; J3490

== ENCOUNTER → 2020-12-03 08:20 | Outpatient (CLI) | payer SELFPAY ==
[2020-11-21 08:34] VITALS: BMI 49.6
[2020-11-28 09:17] VITALS: BMI 50.0
[2020-12-03] MEDS: 0.9% NaCl IVPB Med Flush (250 mL) 15 ML IV (08:30)
[2020-12-03] MEDS: 0.9% NaCl PICC Flush IV ×2 (08:30→09:50)
[2020-12-03 08:31] VITALS: BP 149/77; PULSE 87; RESP 16; TEMP 36.2; O2SAT 97
[2020-12-03 09:55] VITALS: BP 144/78; PULSE 80; RESP 16; TEMP 36.3; O2SAT 96
== END ==
PROVIDERS: PCP Family Medicine; Referring Provider Internal Medicine Infectious Disease; Visit Provider Internal Medicine Infectious Disease
DX: M86.8X6 Other osteomyelitis, lower leg (principal); B95.7 Other staphylococcus as the cause of diseases classified elsewhere
CPT/HCPCS: 96365; J0878; J7050; A4216; J3490

== ENCOUNTER → 2020-12-04 08:19 | Outpatient (CLI) | payer SELFPAY ==
[2020-11-21 08:34] VITALS: BMI 49.6
[2020-11-28 09:17] VITALS: BMI 50.0
[2020-12-04 08:37] VITALS: BP 134/82; PULSE 79; RESP 16; TEMP 35.9; O2SAT 98; BMI 51.3
[2020-12-04] MEDS: 0.9% NaCl PICC Flush IV ×2 (08:41→09:49)
[2020-12-04] MEDS: 0.9% NaCl IVPB Med Flush (250 mL) 15 ML IV (08:42)
[2020-12-04 08:55] LABS: Erythrocyte Sedimentation Rate 29 mm/hr (0-20)
[2020-12-04 08:57] LABS: Absolute Lymphocyte Count 2.63 X10^3/uL (0.83-4.51); Absolute Neutrophil Count 4.4 X10^3/uL (2.0-7.7); Basophil# 0.03 X10^3/uL; Basophil% 0.4 % (0-1); Eosinophil# 0.36 X10^3/uL; Eosinophils% 4.5 % (0-5); Hemoglobin 12.8 g/dL (13.0-16.5); Lymphocyte # 2.63 X10^3/ul (0.83-4.51); Lymphocyte % 32.6 % (19-41); Mean Corpuscular Hgb 31.1 pg (27.0-32.0); Mean Corpuscular Volume 97.1 fL (80-94); Mean Platelet Vol. 9.7 fl (6.2-12.0); Monocyte# 0.63 X10^3/uL; Monocyte% 7.8 % (0-10); NRBC Flagged by Analyzer 0 % (0-5); Neutrophil # 4.38 X10^3/uL (2.7-7.7); Neutrophil % 54.2 % (47-70); Platelet Count 250 K/mm3 (150-450); RBC Distribution Width CV 13.5 % (11.6-14.6); RBC Distribution Width SD 47.9 fl (35.1-43.9); Red Blood Count 4.12 M/mm3 (4.6-6.2); White Blood Count 8.1 K/mm3 (4.4-11.0)
[2020-12-04 09:00] LABS: ALB/GLOB Ratio 0.9 RATIO (0.9-2.4); AST(SGOT) 19 U/L (15-37); Alanine Aminotransfer ALT/SGPT 37 U/L (16-61); Albumin, Serum 3.7 g/dL (3.2-5.0); Alkaline Phosphatase 105 U/L (45-117); Anion Gap 7 (5-15); BUN 21 mg/dL (7-18); BUN/Creat Ratio 21.9 RATIO (10-20); CPK Total, Creatine Kinase 65 U/L (39-308); CRP 7.37 mg/L (0.0-3.0); Calcium,Total 8.9 mg/dL (8.5-10.1); Chloride 102 mmol/L (98-107); Creatinine, Serum 0.96 mg/dL (0.70-1.30); EST Glomerular Filtration Rate 86 mL/min (>60); Est Glom Filt Rate - Afr Amer 104 mL/min (>60); Estimated Creatinine Clearance 82.14 ml/min; Glucose 96 mg/dL (74-106); Potassium 3.9 mmol/L (3.5-5.1); Protein, Total 7.7 g/dL (6.4-8.2); Sodium Level 139 mmol/L (136-145)
[2020-12-04 09:54] VITALS: BP 116/77; PULSE 71; RESP 16; O2SAT 97
== END ==
PROVIDERS: PCP Family Medicine; Referring Provider Internal Medicine Infectious Disease; Visit Provider Internal Medicine Infectious Disease
DX: M86.8X6 Other osteomyelitis, lower leg (principal); B95.7 Other staphylococcus as the cause of diseases classified elsewhere
CPT/HCPCS: 96365; 36592; 80053; 82550; 85025; 85652; 86140; J0878; J7050; A4216; J3490

== ENCOUNTER → 2020-12-05 08:19 | Outpatient (CLI) | payer SELFPAY ==
[2020-11-21 08:34] VITALS: BMI 49.6
[2020-12-04 08:37] VITALS: BMI 51.3
[2020-12-05] MEDS: 0.9% NaCl PICC Flush IV ×2 (08:28→09:33)
[2020-12-05] MEDS: 0.9% NaCl IVPB Med Flush (250 mL) 15 ML IV (08:28)
[2020-12-05 08:31] VITALS: BP 126/70; PULSE 82; RESP 16; TEMP 35.8; O2SAT 96
== END ==
PROVIDERS: PCP Family Medicine; Referring Provider Internal Medicine Infectious Disease; Visit Provider Internal Medicine Infectious Disease
DX: M86.8X6 Other osteomyelitis, lower leg (principal); B95.7 Other staphylococcus as the cause of diseases classified elsewhere
CPT/HCPCS: 96365; J0878; J7050; A4216; J3490